=== PATIENT | male | born 1965 | race Caucasian/White ===

== ENCOUNTER 2019-01-08 11:53 | Inpatient (IN) ==
[2019-01-08] MEDS ORDERED: CeFAZolin Syr 2,000MG/20 ML 2,000 MG/20 ML SYRINGE IVPB ONE (12:06)
[2019-01-08] MEDS ORDERED: Albuterol 2.5 MG/3 ML NEBULIZER IH ONE ×2 (12:06→13:39)
[2019-01-08] MEDS ORDERED: Ringers Solution, Lactated 1,000 ML IVC SCH (12:15)
--- NOTE | 2019-01-08 13:02 | Anesthesia Evaluation PreOp ---
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: CVA (2011 - residiual visual deficit only) Other Medical History: Diabetes Type II (oral medications only) Alcohol Use: occasionally, heavy Drug use: none Medications and Allergies Amlodipine Besylate 10 mg PO DAILY 01/05/19 [History] Aspirin [Lo-Dose Aspirin EC] 81 mg PO DAILY 01/05/19 [History] Atorvastatin [Lipitor] 40 mg PO HS 01/05/19 [History] Cilostazol [Pletal] 100 mg PO BID 01/05/19 [History] Clopidogrel [Plavix] 75 mg PO DAILY 01/05/19 [History] GlipiZIDE [Glipizide Xl] 5 mg PO DAILY 01/05/19 [History] Isosorbide MONOnitrate (24 HR) [Imdur] 30 mg PO DAILY 01/05/19 [History] Lisinopril [Zestril] 40 mg PO DAILY 01/05/19 [History] Nitroglycerin [Nitrostat] 0.4 mg SL Q5M PRN 01/05/19 [History] Omeprazole [PriLOSEC] 20 mg PO DAILY 01/05/19 [History] SitaGLIPtin [Januvia] 100 mg PO DAILY 01/05/19 [History] Spironolactone [Aldactone] 25 mg PO DAILY 01/05/19 [History] hydroCHLOROthiazide [Hydrochlorothiazide] 25 mg PO DAILY 01/05/19 [History] Metformin HCl 1,000 mg PO BID 01/08/19 [History] Metoprolol Succinate [Toprol Xl] 100 mg PO DAILY 01/08/19 [History] Allergy/AdvReac Type Severity Reaction Status Date / Time No Known Allergies Allergy Verified 01/05/19 10:01 - Meds/Allergy Pre-op Review Medications Reviewed: Yes Allergies Reviewed: Yes Beta Blockers on Current Med List: Yes (metoprolol) If Beta Blockers taken, Date/Time (Last Dose taken): 01-07-19 metoprolol 20:00 Anesthesia Results - Labs Laboratory Tests 01/03/19 01/03/19 01/03/19 16:43 16:43 16:43 WBC 9.9 Hgb 12.8 L Hct 40.5 Plt Count 205 PT 10.8 INR 1.0 APTT 34.0 Sodium 140 Potassium 3.4 L Chloride 104 Carbon Dioxide 28 BUN 20 Creatinine 0.93 Est GFR ( Amer) > 60 Est GFR (Non-Af Amer) > 60 BUN/Creatinine Ratio 22 Glucose 245 H Est Mean Plasma Glucose Hemoglobin A1c Calculated Osmolality 301 H Calcium 9.4 01/05/19 16:51 WBC Hgb Hct Plt Count PT INR APTT Sodium Potassium Chloride Carbon Dioxide BUN Creatinine Est GFR ( Amer) Est GFR (Non-Af Amer) BUN/Creatinine Ratio Glucose Est Mean Plasma Glucose 235 Hemoglobin A1c 9.8 H Calculated Osmolality Calcium - Imaging EKG: report reviewed, image reviewed (SINUS RHYTHM MODERATE INTRAVENTRICULAR CONDUCTION DELAY) Anesthesia Exam Last Vital Signs Temp 98.3 F 01/08/19 12:13 Pulse 82 01/08/19 12:13 Resp 18 01/08/19 12:13 BP 156/92 01/08/19 12:13 Pulse Ox 97 01/08/19 12:13 Weight: 104 kg - HEENT Pupil (Motor): Pupils equal, EOMI Mallampati: III Teeth: Normal Oral Opening: Greater than 3 - EXT JS DEVELOPER LOC: Oriented - Cardiac Rhythm: Regular Murmur: None - Pulmonary Breath Sounds: bilateral Clear Respiratory Effort: Symmetrical Anesthesia Assess/Plan ASA Score: 3 Level of consciousness: Cooperative Anesthetic Plan: General Monitoring Plan: Standard Monitors, A-Line Recovery Plan: PACU
[2019-01-08] MEDS ORDERED: Heparin 1,000 UNITS/500 mL 500 ML ONE ×3 (13:36→19:55)
[2019-01-08] MEDS ORDERED: *HR* OxyCODONE Immed Rel 5 MG TABLET PO PRN (13:39)
[2019-01-08] MEDS ORDERED: Acetaminophen IV 1,000 MG/100 ML INFUS..BTL IVPB ONE (13:39)
[2019-01-08] MEDS ORDERED: *HR* Midazolam HCl 2 MG/2 ML VIAL ONE ×2 (14:09→16:38)
[2019-01-08] MEDS ORDERED: *HR* FentaNYL (PF) 100 MCG/2 ML VIAL ONE ×3 (14:09→17:35)
--- NOTE | 2019-01-08 14:09 | History & Physical Report ---
Date of Encounter: 01/08/19 Time of Encounter: 14:00 24 Hour HP Update - Instructions Instructions: If the History and Physical is less than 30 days old and was completed prior to A.M. admission and or procedure and has NOT been updated on calendar day of procedure please complete this update prior to performing procedure. - Update Patient reports changes in Medical Condition: No Changes in examination, assessment, or condition: No Changes in Medication: No Preop tests/diagnostics Reviewed: Yes Surgery Remains Indicated: Yes Consent for Planned Operative Procedure(s) Verified: Yes - Pre-Operative Checklist Preoperative Checklist Indicated: Yes Prophylactic Antibiotic Ordered: Yes Home Medications Include Beta Jazzy: Yes Beta Jazzy Taken Today (Day of Surgery): Yes Beta Jazzy Taken Yesterday (Day Prior to Surgery): Yes Is VTE Prophylaxis Indicated?: Yes
[2019-01-08] MEDS ORDERED: *HR* Propofol 200 MG/20 ML VIAL IVP ONE ×2 (14:10→16:40)
[2019-01-08] MEDS ORDERED: Dexamethasone 4 MG/ML VIAL ONE ×2 (14:13→18:24)
[2019-01-08] MEDS ORDERED: *HR* Succinylcholine 200 MG/10 ML VIAL IVP ONE ×2 (14:13→18:18)
[2019-01-08] MEDS ORDERED: Ondansetron 4 MG/2 ML VIAL ONE ×2 (14:13→18:24)
[2019-01-08] MEDS ORDERED: EPHEDrine 50 MG/ML VIAL ONE ×2 (14:13→18:20)
[2019-01-08] MEDS ORDERED: Lidocaine -MPF 2% 2 ML VIAL ONE ×3 (14:13→17:28)
[2019-01-08] MEDS ORDERED: *HR* Phenylephrine 10 MG/ML VIAL ONE ×2 (14:16→16:42)
[2019-01-08] MEDS ORDERED: *HR* Rocuronium Bromide 50 MG/5 ML VIAL ONE (16:38)
[2019-01-08] MEDS ORDERED: *HR* Remifentanil 2 MG VIAL IVP ONE (16:40)
[2019-01-08] MEDS ORDERED: Protamine Sulfate 50 MG/5 ML VIAL IVP ONE (16:48)
[2019-01-08] MEDS ORDERED: Lidocaine 1% 20 ML MDV ONE (16:49)
[2019-01-08] MEDS ORDERED: NiCARdipine 2.5 MG/10 ML Syringe IVPB ONE (16:54)
[2019-01-08] MEDS ORDERED: *HR* Heparin 5,000 UNIT/ML VIAL ONE (18:18)
[2019-01-08] MEDS ORDERED: *HR* PHENYLEPHRINE 1,000 MCG/10 ML SYRINGE IVP ONE (18:18)
--- NOTE | 2019-01-08 19:45 | Anesthesia Procedures ---
Date of Encounter: 01/08/19 Time of Encounter: 17:30 Procedures: Anesthesia - Arterial Line Time out performed: Yes Sedation: Versed (mg): 2 Sedation: Fentanyl (mcg): 150 Supplemental Oxygen via Nasal Cannula (L/min): 3 Local Anesthetic: Lidocaine 1% Size (Gauge): 20 Length (inches): 1 3/4 Technique Used: sterile prep, guide wire technique Post-Procedure: line taped into place, dry sterile dressing placed Patient tolerated procedure: well Complications: none Site: Brachial L
[2019-01-08] MEDS ORDERED: *HR* HYDROmorphone (PF) 1 MG/ML SYRINGE ONE (21:45)
[2019-01-08] MEDS: *HR* HYDROmorphone (PF) 1 MG/ML SYRINGE IVP PRN ×2 (21:47→21:54)
[2019-01-08] MEDS: *HR* Promethazine 25 MG/ML VIAL IVP PRN ×2 (21:49→22:06)
--- NOTE | 2019-01-08 21:53 | Operative Note ---
Date of procedure: 01/08/19 Pre-op diagnosis: left carotid stenosis/TIA Post-op diagnosis: same Procedure: left carotid endarterectomy with 10 Fr. shunt and bovine patch angioplasty left neck lymph node biopsy Complications: 0 Anesthesia: GETA Surgeon: Rene Michelle Was there an regional administrative assistant present: No Estimated blood loss (cc): 300 Specimen: plaque and lymph nodes Condition: stable Disposition: PACU Procedure in Detail: History Mr. Alfonso is a 53-year-old white male with very colicky past medical history. This includes significant coronary artery disease and multiple coronary stents. He also suffered a stroke in 2011. He is now having visual disturbances which led to a duplex scan. The carotid artery duplex scan showed a markedly abnormal left carotid flow pattern. A carotid artery antrum was performed last week which demonstrated a critical stenosis of greater than 90% of the left internal carotid artery. The patient for urgent left carotid endarterectomy. Procedure After informed consent was obtained the patient was taken from the holding room to the operating room. General endotracheal anesthesia was established under arterial line pressure monitoring. The left neck was then sterilely prepped and draped. A timeout protocol was observed. An oblique incision was then made on the left neck. This revealed significant inflammatory changes in the left neck. The contents of the carotid sheath were essentially fused together. There was dramatic bulky lymphadenopathy present as well. A very tedious dissection was unnecessary in order to dissect off the lymph nodes which were overlying the carotid artery bifurcation. 2 lymph nodes were submitted for specimen as they needed to be resected to provide appropriate exposure. Dissection was carried down along the anterior surface of the carotid. Very thick inflammatory peel was surrounding the carotid vessels as well. The hypoglossal nerve was identified and preserved as was the ansa cervicalis nerve. After appropriate control was obtained with Vesseloops 5000 units of heparin was administered intravenously. After 3 minute delay the vessels were clamped with the internal carotid artery clamped first. Using an 11 blade knife and Davis scissors the artery was opened. A shunt was then inserted. Patency of the shunt was confirmed by the use of intraoperative Doppler. Observation of the plaque revealed a critical stenosis of the left internal carotid artery of greater than 95%. The plaque was very heterogeneous semi-soft material. The plaque extended more distally and proximally than depicted by the angiogram as well. The wall of the artery was also markedly thickened and inflamed. The endarterectomy was then begun at the distal common carotid artery. This was dissected circumferentially. The dissection was carried distally so that the s uperior thyroid and external carotid artery orifices were also endarterectomized fully. The arteriotomy was then extended on the internal carotid artery. A James shunt clamp was used. The endpoint on the internal was smooth and no tacking sutures were necessary. The bed of the vessels then inspected for any residual debris. After this was removed a bovine pericardial patch was sewn into position using 2 6-0 Prolene sutures. Leaving a small space open on the suture line the shunt was clamped divided and removed. The internal carotid artery was allowed to backflush and it was reclamped. Then the external and common carotid artery were opened. Finally the internal was reopened. Excellent pulsatile flow was observed both by palpation and by Doppler evaluation. There was no hemodynamic distress with this maneuver. The wound was then irrigated and hemostasis achieved. A superficial cervical block using half percent Marcaine was performed. The wound was then closed in layers using absorbable suture. No drains were placed. A dry sterile dressing was applied. The patient was extubated in the operating room. He was found to be neurologically intact. He was then taken from the operating room to the recovery room in stable condition. The lymph nodes and the plaque were submitted for specimen analysis.
--- NOTE | 2019-01-08 22:46 | Anesthesia Evaluation Post Op ---
Date of Encounter: 01/08/19 Time of Encounter: 22:45 - Vital Signs Vital Signs: Vital Signs/O2 Sat, Most Current Temp Pulse Resp BP Pulse Ox 97.5 F L 80 16 150/87 97 01/08/19 22:32 01/08/19 22:32 01/08/19 22:32 01/08/19 22:32 01/08/19 22:32 - Lungs Lungs: Clear Ascult./Percussion - Airway Airway: Non-obstructed - Cardiovascular Regular Rate - Mental Status Mental Status: Asleep with brisk response to light stimulation - Pain Pain Scale: 7 Pain Scale used: Numeric (1 - 10) - Nausea Vomiting Nausea Vomiting: Not Present - Hydration Hydration: Ice chips, [place] catheter - Discharge PostOp Status: Transfer Patient to floor
[2019-01-08] MEDS ORDERED: *HR* HYDROcodone/Acet 5/325 mg TABLET PO PRN (22:51)
[2019-01-08] MEDS ORDERED: Nitroglycerin 0.4 MG TAB.SUBL SL PRN (22:51)
[2019-01-08] MEDS ORDERED: Naloxone 0.4 MG/ML INJ IVP PRN (22:51)
[2019-01-08] MEDS ORDERED: Ondansetron 4 MG/2 ML VIAL IVP PRN (22:51)
[2019-01-08] MEDS ORDERED: *HR* Labetalol 20 MG/4 ML SYRINGE IVP PRN (22:51)
[2019-01-09] MEDS: Acetaminophen 325 MG TABLET PO PRN ×2 (04:28→11:59)
[2019-01-09 07:38] LABS: Basophils % 0.2 %; Hematocrit 35.3 % (37.5-50.1); Hemoglobin 11.5 g/dL (12.9-16.9); Immature Granulocytes % 0.8 % (0-4); Lymphocytes # 1.3 K/mcL (0.6-4.6); Lymphocytes % 13.8 %; Mean Corpuscular HGB Conc 32.6 g/dL (31.6-35.5); Mean Corpuscular Hemoglobin 30.7 pg (28.0-33.3); Mean Corpuscular Volume 94.4 fL (83.0-100.0); Monocytes # 0.6 K/mcL (0.0-1.3); Neutrophils # 7.6 K/mcL (1.6-8.9); Platelet Count 171 K/mcL (140-400); Red Blood Count 3.74 M/mcL (4.19-5.50); Red Cell Distribution Width 12.7 % (11.5-14.5); Segmented Neutrophils % 79.2 %; White Blood Count 9.6 K/mcL (4.3-11.1)
[2019-01-09 07:49] LABS: BUN/Creatinine Ratio 19 (6-26); Blood Urea Nitrogen 15 mg/dL (6-20); Calcium 8.8 mg/dL (8.6-10.3); Carbon Dioxide 25 mEq/L (23-29); Chloride 106 mEq/L (98-107); Glucose 313 mg/dL (70-105); Osmolality,Calculated 289 (280-300); Potassium 4.4 mEq/L (3.5-5.1); Sodium 133 mEq/L (136-145); eGFR For African Americans > 60 (> 60); eGFR For Non-African Americans > 60 (> 60)
[2019-01-09] MEDS ORDERED: Nicotine 14 MG PATCH.TD24 TD SCH (08:00)
[2019-01-09] MEDS ORDERED: amLODIPine 5 MG TABLET PO SCH (09:00)
[2019-01-09] MEDS ORDERED: Spironolactone 25 MG TABLET PO SCH (09:00)
[2019-01-09] MEDS ORDERED: Lisinopril 20 MG TABLET PO SCH (09:00)
[2019-01-09] MEDS ORDERED: *HR* SitaGLIPtin 100 MG TABLET PO SCH (09:00)
[2019-01-09] MEDS ORDERED: Metoprolol XL (24 HR) Succ 50 MG TAB.ER.24H PO SCH (09:00)
[2019-01-09] MEDS ORDERED: *HR* GlipiZIDE XL (24 HR) 2.5 MG TABLET PO SCH (09:00)
[2019-01-09] MEDS ORDERED: hydroCHLOROthiazide 25 MG TABLET PO SCH (09:00)
[2019-01-09] MEDS ORDERED: Isosorbide MONOnitrate (24 HR) 30 MG TAB.ER.24H PO SCH (09:00)
[2019-01-09] MEDS ORDERED: *HR* Metformin 500 MG TABLET PO SCH (09:00)
[2019-01-09] MEDS ORDERED: Aspirin Enteric Coated 81 MG Tablet PO SCH (09:00)
[2019-01-09 12:02] VITALS: BP 147/85
--- NOTE | 2019-01-09 12:33 | Discharge Summary ---
Orders not resulted at time of discharge: Pending orders 01/08/19 20:01 Surgical Pathology [PTH] Routine Date of Encounter: 01/09/19 Time of Encounter: 12:31 - Discharge Diagnosis (1) Carotid arterial disease Priority: Primary Status: Acute Comments: Patient has high-grade left internal carotid artery stenosis. Patient also had visual symptoms. He has a past history of stroke. Endocrine was performed which confirmed a high-grade lesion. Qualifiers: Carotid artery disease type: stenosis Laterality: left Qualified Code(s): I65.22 - Occlusion and stenosis of left carotid artery (2) Coronary artery disease Priority: Secondary Status: Chronic Comments: History of non-STEMI. History of previous coronary angioplasties. Qualifiers: Coronary Disease-Associated Artery/Lesion type: [place] artery [place] vs. 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 Alfonso is a 53 year old male With symptomatic eye disease. He has known carotid artery disease by duplex scan. Telemetry a high-grade left carotid lesion. Patient has a previous stroke in 2011. He has multiple risk factors for vascular disease. Patient was admitted and underwent a left carotid endarterectomy. He had marked inflammatory changes. 2 large bulky lymph nodes were removed at the time of surgery and submitted for specimen. Postoperatively the patient did well. He was neurologically intact. He was hemodynamically stable. He was felt fit for discharge on the afternoon of postoperative day #1. Instructions were given in regards to his diet and exercise and medication and wound care prior to discharge. Time spent discussing smoking cessation with patient: 3 to 10 minutes - Time Spent with Patient Total time spent providing and/or coordinating discharge services: - Discharge Medications Prescriptions: New Nicotine Patch [Nicoderm] 14 mg TD DAILY #30 patch.[id number] HYDROcodone/Acet 5/325 mg [[place] 5-325 mg] 1 tab PO Q6H PRN 7 Days #7 tablet PRN Reason: Moderate Pain Continued Spironolactone [Aldactone] 25 mg PO DAILY SitaGLIPtin [Januvia] 100 mg PO DAILY Omeprazole [PriLOSEC] 20 mg PO DAILY Nitroglycerin [Nitrostat] 0.4 mg SL Q5M PRN PRN Reason: Chest Pain Lisinopril [Zestril] 40 mg PO DAILY Isosorbide MONOnitrate (24 HR) [Imdur] 30 mg PO DAILY hydroCHLOROthiazide [Hydrochlorothiazide] 25 mg PO DAILY GlipiZIDE [Glipizide Xl] 5 mg PO DAILY Clopidogrel [Plavix] 75 mg PO DAILY Cilostazol [Pletal] 100 mg PO BID Atorvastatin [Lipitor] 40 mg PO HS Aspirin [Lo-Dose Aspirin EC] 81 mg PO DAILY Amlodipine Besylate 10 mg PO DAILY Metoprolol Succinate [Toprol Xl] 100 mg PO DAILY Metformin HCl 1,000 mg PO BID Home Medications: Amlodipine Besylate 10 mg PO DAILY 01/05/19 [History] Aspirin [Lo-Dose Aspirin EC] 81 mg PO DAILY 01/05/19 [History] Atorvastatin [Lipitor] 40 mg PO HS 01/05/19 [History] Cilostazol [Pletal] 100 mg PO BID 01/05/19 [History] Clopidogrel [Plavix] 75 mg PO DAILY 01/05/19 [History] GlipiZIDE [Glipizide Xl] 5 mg PO DAILY 01/05/19 [History] Isosorbide MONOnitrate (24 HR) [Imdur] 30 mg PO DAILY 01/05/19 [History] Lisinopril [Zestril] 40 mg PO DAILY 01/05/19 [History] Nitroglycerin [Nitrostat] 0.4 mg SL Q5M PRN 01/05/19 [History] Omeprazole [PriLOSEC] 20 mg PO DAILY 01/05/19 [History] SitaGLIPtin [Januvia] 100 mg PO DAILY 01/05/19 [History] Spironolactone [Aldactone] 25 mg PO DAILY 01/05/19 [History] hydroCHLOROthiazide [Hydrochlorothiazide] 25 mg PO DAILY 01/05/19 [History] Metformin HCl 1,000 mg PO BID 01/08/19 [History] Metoprolol Succinate [Toprol Xl] 100 mg PO DAILY 01/08/19 [History] HYDROcodone/Acet 5/325 mg [[place] 5-325 mg] 1 tab PO Q6H PRN 7 Days #7 tablet 01/09/19 [Rx] Nicotine Patch [Nicoderm] 14 mg TD DAILY #30 patch.[id number] 01/09/19 [Rx] Allergies/Adverse Reactions: Allergy/AdvReac Type Severity Reaction Status Date / Time No Known Allergies Allergy Verified 01/05/19 10:01 Date of admission: 01/08/19 22:42 Primary care physician: PCP DC Consults: None Procedure(s) Performed: Left carotid endarterectomy with patch angioplasty Discharging clinician: Rene Michelle Anticipated date of discharge: 01/09/19 Exam Vital Signs, Last 4 Hours Temp Pulse Resp BP Pulse Ox 01/09/19 11:56 97.7 F 82 16 147/85 94 General: Present: Conversant, No Apparent Distress, Well developed, Well nourished HEENT: Present: Atraumatic, Trachea midline Cardiac: Present: Reg Rate and Rhythm Lungs: Present: Normal Breath Sounds Neuro: Present: Alert and responsive, No focal deficits noted, Cranial nerves grossly intact, Motor nerves grossly intact, Sensory nerves grossly intact Vascular: Present: Surgical incisions (Dry dressing over left neck incision) Skin: Present: No rashes noted on visualized skin - Patient Status Disposition: Home, Self-Care Condition: Good Functional capacity at discharge: independent ambulation Overall status at discharge: patient is progressing back to baseline - Discharge Instructions Follow Up With: DC,PCP [Primary Care Provider] - 01/19/19 10:30 am (teal team) Rene Michelle MD [Partnered Physician] - 01/29/19 11:00 am Additional Instructions: Removed left neck dressing tomorrow. Continued use ice pack on left neck for the next 48 hours at home. Resume usual home medications. No lifting greater than 10 pounds. No driving. No manual labor. Patient may walk inside and outside. Patient may use stairs as tolerated. Keep left neck incision dry for a total of 5 days following surgery. - Diet and Activity Activity: increase activity as tolerated Diet: diabetic diet
== END 2019-01-09 16:02 | disposition home or self-care (01) | DRG 39 ==
LOC: SAMDAY 11:53 → 2NNU 22:42
PROVIDERS: ADMIT Surgery Vascular Surgery; ATTEND Surgery Vascular Surgery

== ENCOUNTER 2019-01-18 08:14 | Inpatient (IN) ==
[2019-01-18] MEDS ORDERED: Isovue-370 500 ML BOTTLE IVP ONE (08:36)
[2019-01-18 08:43] LABS: Basophils # 0.1 K/mcL (0.0-0.2); Basophils % 0.5 %; Eosinophils # 0.1 K/mcL (0.0-0.6); Eosinophils % 0.5 %; Hematocrit 39.2 % (37.5-50.1); Hemoglobin 12.5 g/dL (12.9-16.9); Immature Granulocytes % 0.6 % (0-4); Lymphocytes # 2.4 K/mcL (0.6-4.6); Lymphocytes % 12.6 %; Mean Corpuscular HGB Conc 31.9 g/dL (31.6-35.5); Mean Corpuscular Hemoglobin 29.8 pg (28.0-33.3); Mean Corpuscular Volume 93.6 fL (83.0-100.0); Monocytes # 1.7 K/mcL (0.0-1.3); Neutrophils # 14.6 K/mcL (1.6-8.9); Platelet Count 297 K/mcL (140-400); Red Blood Count 4.19 M/mcL (4.19-5.50); Red Cell Distribution Width 12.6 % (11.5-14.5); Segmented Neutrophils % 76.8 %
[2019-01-18 08:55] LABS: INR 1.1; Prothrombin Time 12.2 Seconds (9.4-12.1)
[2019-01-18 09:02] LABS: BUN/Creatinine Ratio 13 (6-26); Blood Urea Nitrogen 12 mg/dL (6-20); Calcium 9.3 mg/dL (8.6-10.3); Carbon Dioxide 27 mEq/L (23-29); Chloride 98 mEq/L (98-107); Glucose 344 mg/dL (70-105); Osmolality,Calculated 289 (280-300); Potassium 3.7 mEq/L (3.5-5.1); Sodium 133 mEq/L (136-145); eGFR For African Americans > 60 (> 60); eGFR For Non-African Americans > 60 (> 60)
[2019-01-18] MEDS ORDERED: *HR* HYDROmorphone (PF) 1 MG/ML SYRINGE IVP ONE ×2 (10:28→16:37)
[2019-01-18] MEDS ORDERED: Ondansetron 4 MG/2 ML VIAL IVP PRN (11:27)
[2019-01-18] MEDS ORDERED: Naloxone 0.4 MG/ML INJ IVP PRN ×2 (11:27→21:56)
[2019-01-18] MEDS ORDERED: Ringers Solution, Lactated 1,000 ML IVC SCH (11:30)
[2019-01-18] MEDS ORDERED: *HR* FentaNYL (PF) 100 MCG/2 ML VIAL IVP ONE (13:49)
[2019-01-18] MEDS ORDERED: Heparin 1,000 UNITS/500 mL 500 ML ONE ×2 (18:04→18:20)
[2019-01-18] MEDS ORDERED: ceFAZolin 2,000 MG in Water for inj. (sterile) 20 ML IVP ONE (18:14)
[2019-01-18] MEDS ORDERED: Lidocaine TOPICAL Soln 50 ML BOTTLE ONE (18:25)
[2019-01-18] MEDS ORDERED: Acetaminophen IV 1,000 MG/100 ML INFUS..BTL ONE (19:51)
[2019-01-18] MEDS ORDERED: Vancomycin 1,000 MG VIAL ONE (20:02)
[2019-01-18] MEDS ORDERED: Lidocaine -MPF 2% 2 ML VIAL ONE (20:57)
[2019-01-18] MEDS ORDERED: *HR* Midazolam HCl 2 MG/2 ML VIAL ONE (20:57)
[2019-01-18] MEDS ORDERED: Ondansetron 4 MG/2 ML VIAL ONE (20:57)
[2019-01-18] MEDS ORDERED: Dexamethasone 4 MG/ML VIAL ONE (20:57)
[2019-01-18] MEDS ORDERED: EPHEDrine 50 MG/ML VIAL ONE (20:57)
[2019-01-18] MEDS ORDERED: *HR* PHENYLEPHRINE 1,000 MCG/10 ML SYRINGE IVP ONE ×3 (20:57)
[2019-01-18] MEDS ORDERED: *HR* Succinylcholine 200 MG/10 ML VIAL IVP ONE (20:57)
[2019-01-18] MEDS ORDERED: *HR* Phenylephrine 10 MG/ML VIAL ONE (20:57)
[2019-01-18] MEDS ORDERED: *HR* FentaNYL (PF) 100 MCG/2 ML VIAL ONE ×2 (20:57)
[2019-01-18] MEDS ORDERED: *HR* HYDROMORPHONE 2 MG/ML VIAL ONE (20:57)
[2019-01-18] MEDS ORDERED: *HR* Propofol 200 MG/20 ML VIAL IVP ONE (20:57)
[2019-01-18] MEDS ORDERED: Ringers Solution, Lactated 1,000 ML ONE (21:41)
[2019-01-18] MEDS ORDERED: Ampicillin/Sulbactam 3,000 MG in 0.9 % Sodium Chloride Mini Bag 100 ML IVPB SCH (22:00)
[2019-01-19] MEDS ORDERED: Nitroglycerin 0.4 MG TAB.SUBL SL PRN (00:03)
[2019-01-19] MEDS: Nicotine 14 MG PATCH.TD24 TD SCH ×2 (00:04→21:48)
[2019-01-19] MEDS ORDERED: *HR* Labetalol 20 MG/4 ML SYRINGE IVP PRN (00:05)
[2019-01-19] MEDS: *HR* Metformin 500 MG TABLET PO SCH ×3 (00:20→21:49)
[2019-01-19] MEDS ORDERED: Vancomycin 1,000 MG in D5% in Water 250 ML IVPB ONE (01:00)
[2019-01-19 01:28] LABS: Basophils # 0.1 K/mcL (0.0-0.2); Basophils % 0.3 %; Immature Granulocytes % 0.7 % (0-4); Lymphocytes # 0.8 K/mcL (0.6-4.6); Lymphocytes % 4.7 %; Mean Corpuscular HGB Conc 31.5 g/dL (31.6-35.5); Mean Corpuscular Hemoglobin 30.1 pg (28.0-33.3); Mean Corpuscular Volume 95.4 fL (83.0-100.0); Mean Platelet Volume 12.5 fL (9.4-12.4); Monocytes # 0.3 K/mcL (0.0-1.3); Monocytes % 1.5 %; Neutrophils # 16.4 K/mcL (1.6-8.9); Platelet Count 253 K/mcL (140-400); Red Blood Count 3.46 M/mcL (4.19-5.50); Red Cell Distribution Width 12.5 % (11.5-14.5); Segmented Neutrophils % 92.8 %; White Blood Count 17.6 K/mcL (4.3-11.1)
[2019-01-19 01:30] LABS: Hemoglobin 10.4 g/dL (12.9-16.9)
[2019-01-19] MEDS: *HR* HYDROcodone/Acet 5/325 mg TABLET PO PRN (04:40)
[2019-01-19] MEDS: Ampicillin/Sulbactam 3,000 MG in 0.9 % Sodium Chloride Mini Bag 100 ML IVPB SCH ×4 (05:17→23:51)
[2019-01-19] MEDS ORDERED: Dextrose Gel 15 GM/37.5 ML TUBE PO PRN ×2 (08:30)
[2019-01-19] MEDS ORDERED: D5% in Water 1,000 ML IVC PRN (08:30)
[2019-01-19] MEDS ORDERED: *HR* Dextrose 50 % in Water (Syg) 50 ML SYRINGE IVP PRN (08:30)
[2019-01-19] MEDS: Insulin LISPRO 300 UNITS/3 ML VIAL SQ SCH ×4 (09:12→21:49)
[2019-01-19] MEDS: Lisinopril 20 MG TABLET PO SCH (09:55)
[2019-01-19] MEDS: *HR* SitaGLIPtin 100 MG TABLET PO SCH (09:55)
[2019-01-19] MEDS: *HR* GlipiZIDE XL (24 HR) 2.5 MG TABLET PO SCH (09:55)
[2019-01-19] MEDS: Spironolactone 25 MG TABLET PO SCH (09:55)
[2019-01-19] MEDS: Metoprolol XL (24 HR) Succ 50 MG TAB.ER.24H PO SCH (09:56)
[2019-01-19] MEDS: amLODIPine 5 MG TABLET PO SCH (09:56)
[2019-01-19] MEDS: Aspirin Enteric Coated 81 MG Tablet PO SCH (09:56)
[2019-01-19] MEDS: Isosorbide MONOnitrate (24 HR) 30 MG TAB.ER.24H PO SCH (09:56)
[2019-01-19] MEDS: hydroCHLOROthiazide 25 MG TABLET PO SCH (09:57)
[2019-01-19] MEDS ORDERED: Isovue-370 500 ML BOTTLE IVP ONE (14:47)
[2019-01-19] MEDS: Melatonin 3 MG TABLET PO PRN (21:49)
[2019-01-19 21:57] LABS: BUN/Creatinine Ratio 26 (6-26); Blood Urea Nitrogen 23 mg/dL (6-20); Calcium 9.1 mg/dL (8.6-10.3); Carbon Dioxide 31 mEq/L (23-29); Chloride 98 mEq/L (98-107); Glucose 217 mg/dL (70-105); Osmolality,Calculated 292 (280-300); Potassium 3.6 mEq/L (3.5-5.1); Sodium 136 mEq/L (136-145); eGFR For African Americans > 60 (> 60); eGFR For Non-African Americans > 60 (> 60)
[2019-01-19] MEDS ORDERED: Nicotine 14 MG PATCH.TD24 TD SCH (22:30)
[2019-01-20] MEDS: Ampicillin/Sulbactam 3,000 MG in 0.9 % Sodium Chloride Mini Bag 100 ML IVPB SCH ×3 (05:08→16:41)
[2019-01-20] MEDS: *HR* HYDROcodone/Acet 5/325 mg TABLET PO PRN (05:49)
[2019-01-20] MEDS: *HR* SitaGLIPtin 100 MG TABLET PO SCH (08:15)
[2019-01-20] MEDS: *HR* GlipiZIDE XL (24 HR) 2.5 MG TABLET PO SCH (08:15)
[2019-01-20] MEDS: amLODIPine 5 MG TABLET PO SCH (08:15)
[2019-01-20] MEDS: hydroCHLOROthiazide 25 MG TABLET PO SCH (08:15)
[2019-01-20] MEDS: Isosorbide MONOnitrate (24 HR) 30 MG TAB.ER.24H PO SCH (08:15)
[2019-01-20] MEDS: Spironolactone 25 MG TABLET PO SCH (08:15)
[2019-01-20] MEDS: *HR* Metformin 500 MG TABLET PO SCH ×2 (08:15→20:25)
[2019-01-20] MEDS: Aspirin Enteric Coated 81 MG Tablet PO SCH (08:15)
[2019-01-20] MEDS: Lisinopril 20 MG TABLET PO SCH (08:15)
[2019-01-20] MEDS: Metoprolol XL (24 HR) Succ 50 MG TAB.ER.24H PO SCH (08:15)
[2019-01-20] MEDS: Insulin LISPRO 300 UNITS/3 ML VIAL SQ SCH ×4 (08:17→20:25)
[2019-01-20] MEDS: Nicotine 14 MG PATCH.TD24 TD SCH (20:26)
[2019-01-21] MEDS: Ampicillin/Sulbactam 3,000 MG in 0.9 % Sodium Chloride Mini Bag 100 ML IVPB SCH ×5 (01:06→23:28)
[2019-01-21] MEDS: *HR* HYDROcodone/Acet 5/325 mg TABLET PO PRN ×3 (01:18→20:15)
[2019-01-21] MEDS: Spironolactone 25 MG TABLET PO SCH (08:03)
[2019-01-21] MEDS: Lisinopril 20 MG TABLET PO SCH (08:03)
[2019-01-21] MEDS: *HR* Metformin 500 MG TABLET PO SCH ×2 (08:03→20:13)
[2019-01-21] MEDS: amLODIPine 5 MG TABLET PO SCH (08:03)
[2019-01-21] MEDS: Isosorbide MONOnitrate (24 HR) 30 MG TAB.ER.24H PO SCH (08:03)
[2019-01-21] MEDS: Metoprolol XL (24 HR) Succ 50 MG TAB.ER.24H PO SCH (08:03)
[2019-01-21] MEDS: Aspirin Enteric Coated 81 MG Tablet PO SCH (08:03)
[2019-01-21] MEDS: *HR* GlipiZIDE XL (24 HR) 2.5 MG TABLET PO SCH (08:03)
[2019-01-21] MEDS: *HR* SitaGLIPtin 100 MG TABLET PO SCH (08:03)
[2019-01-21] MEDS: hydroCHLOROthiazide 25 MG TABLET PO SCH (08:03)
[2019-01-21] MEDS: Insulin LISPRO 300 UNITS/3 ML VIAL SQ SCH ×4 (08:04→21:45)
[2019-01-21] MEDS: Nicotine 14 MG PATCH.TD24 TD SCH (20:13)
[2019-01-22] MEDS: Ampicillin/Sulbactam 3,000 MG in 0.9 % Sodium Chloride Mini Bag 100 ML IVPB SCH ×3 (04:59→18:11)
[2019-01-22] MEDS: *HR* SitaGLIPtin 100 MG TABLET PO SCH (08:17)
[2019-01-22] MEDS: Isosorbide MONOnitrate (24 HR) 30 MG TAB.ER.24H PO SCH (08:17)
[2019-01-22] MEDS: *HR* Metformin 500 MG TABLET PO SCH ×2 (08:17→20:58)
[2019-01-22] MEDS: hydroCHLOROthiazide 25 MG TABLET PO SCH (08:17)
[2019-01-22] MEDS: Lisinopril 20 MG TABLET PO SCH (08:17)
[2019-01-22] MEDS: Spironolactone 25 MG TABLET PO SCH (08:17)
[2019-01-22] MEDS: Metoprolol XL (24 HR) Succ 50 MG TAB.ER.24H PO SCH (08:18)
[2019-01-22] MEDS: Insulin LISPRO 300 UNITS/3 ML VIAL SQ SCH ×4 (08:18→21:01)
[2019-01-22] MEDS: Aspirin Enteric Coated 81 MG Tablet PO SCH (08:18)
[2019-01-22] MEDS: *HR* GlipiZIDE XL (24 HR) 2.5 MG TABLET PO SCH (08:18)
[2019-01-22] MEDS: amLODIPine 5 MG TABLET PO SCH (08:18)
[2019-01-22] MEDS: Nicotine 14 MG PATCH.TD24 TD SCH (20:57)
[2019-01-22] MEDS: Melatonin 3 MG TABLET PO PRN (20:58)
[2019-01-23] MEDS: Ampicillin/Sulbactam 3,000 MG in 0.9 % Sodium Chloride Mini Bag 100 ML IVPB SCH ×3 (00:28→11:51)
[2019-01-23] MEDS: *HR* HYDROcodone/Acet 5/325 mg TABLET PO PRN (01:33)
[2019-01-23 06:26] LABS: BUN/Creatinine Ratio 16 (6-26); Basophils # 0.1 K/mcL (0.0-0.2); Basophils % 0.6 %; Blood Urea Nitrogen 15 mg/dL (6-20); Calcium 9.2 mg/dL (8.6-10.3); Carbon Dioxide 29 mEq/L (23-29); Chloride 100 mEq/L (98-107); Eosinophils # 0.2 K/mcL (0.0-0.6); Eosinophils % 1.2 %; Glucose 189 mg/dL (70-105); Hematocrit 35.5 % (37.5-50.1); Hemoglobin 11.1 g/dL (12.9-16.9); Immature Granulocytes % 0.4 % (0-4); Lymphocytes # 2.4 K/mcL (0.6-4.6); Lymphocytes % 19.1 %; Mean Corpuscular HGB Conc 31.3 g/dL (31.6-35.5); Mean Corpuscular Hemoglobin 29.4 pg (28.0-33.3); Mean Corpuscular Volume 93.9 fL (83.0-100.0); Mean Platelet Volume 12.2 fL (9.4-12.4); Monocytes # 1.1 K/mcL (0.0-1.3); Monocytes % 8.6 %; Neutrophils # 8.8 K/mcL (1.6-8.9); Osmolality,Calculated 292 (280-300); Platelet Count 321 K/mcL (140-400); Potassium 3.7 mEq/L (3.5-5.1); Red Blood Count 3.78 M/mcL (4.19-5.50); Red Cell Distribution Width 12.4 % (11.5-14.5); Segmented Neutrophils % 70.1 %; Sodium 138 mEq/L (136-145); White Blood Count 12.5 K/mcL (4.3-11.1); eGFR For African Americans > 60 (> 60); eGFR For Non-African Americans > 60 (> 60)
[2019-01-23] MEDS: *HR* GlipiZIDE XL (24 HR) 2.5 MG TABLET PO SCH (08:40)
[2019-01-23] MEDS: Isosorbide MONOnitrate (24 HR) 30 MG TAB.ER.24H PO SCH (08:40)
[2019-01-23] MEDS: *HR* Metformin 500 MG TABLET PO SCH (08:40)
[2019-01-23] MEDS: amLODIPine 5 MG TABLET PO SCH (08:40)
[2019-01-23] MEDS: Metoprolol XL (24 HR) Succ 50 MG TAB.ER.24H PO SCH (08:40)
[2019-01-23] MEDS: *HR* SitaGLIPtin 100 MG TABLET PO SCH (08:40)
[2019-01-23] MEDS: hydroCHLOROthiazide 25 MG TABLET PO SCH (08:40)
[2019-01-23] MEDS: Aspirin Enteric Coated 81 MG Tablet PO SCH (08:40)
[2019-01-23] MEDS: Lisinopril 20 MG TABLET PO SCH (08:40)
[2019-01-23] MEDS: Spironolactone 25 MG TABLET PO SCH (08:41)
[2019-01-23] MEDS: Insulin LISPRO 300 UNITS/3 ML VIAL SQ SCH (08:41)
[2019-01-23 12:06] VITALS: BP 111/76
== END 2019-01-23 13:06 | disposition home health service (06) | DRG 857 ==
LOC: EMEROOARM 08:14 → 2NNU 08:14 → SUATTDRO 15:59 → 2NNU 17:14
PROVIDERS: ADMIT Internal Medicine; ATTEND Surgery Vascular Surgery

== ENCOUNTER 2019-05-28 11:15 | Observation (INO) ==
[2019-05-28] MEDS ORDERED: Nitroglycerin 0.4 MG TAB.SUBL SL PRN (11:33)
[2019-05-28] MEDS ORDERED: *HR* LORazepam 2 MG/ML VIAL IVP ONE (11:33)
[2019-05-28 11:46] LABS: Basophils % 0.5 %; Eosinophils # 0.1 K/mcL (0.0-0.6); Eosinophils % 0.8 %; Hematocrit 43.1 % (37.5-50.1); Hemoglobin 14.2 g/dL (12.9-16.9); Immature Granulocytes % 0.2 % (0-4); Lymphocytes # 2.3 K/mcL (0.6-4.6); Lymphocytes % 26.3 %; Mean Corpuscular HGB Conc 32.9 g/dL (31.6-35.5); Mean Corpuscular Volume 90.9 fL (83.0-100.0); Mean Platelet Volume 12.6 fL (9.4-12.4); Monocytes # 0.7 K/mcL (0.0-1.3); Monocytes % 8.1 %; Neutrophils # 5.5 K/mcL (1.6-8.9); Platelet Count 209 K/mcL (140-400); Red Blood Count 4.74 M/mcL (4.19-5.50); Red Cell Distribution Width 12.7 % (11.5-14.5); Segmented Neutrophils % 64.1 %; White Blood Count 8.6 K/mcL (4.3-11.1)
[2019-05-28 12:05] LABS: BUN/Creatinine Ratio 15 (6-26); Blood Urea Nitrogen 15 mg/dL (6-20); Calcium 9.3 mg/dL (8.6-10.3); Carbon Dioxide 26 mEq/L (23-29); Chloride 100 mEq/L (98-107); Glucose 347 mg/dL (70-105); Osmolality,Calculated 295 (280-300); Potassium 3.9 mEq/L (3.5-5.1); Sodium 135 mEq/L (136-145); Troponin I < 0.03 ng/mL (< 0.04); eGFR For African Americans > 60 (> 60); eGFR For Non-African Americans > 60 (> 60)
[2019-05-28] MEDS ORDERED: Insulin Regular, Human 100 UNIT/ML SQ ONE (12:40)
[2019-05-28] MEDS ORDERED: 0.9 % Sodium Chloride 1,000 ML IVC ONE (12:47)
[2019-05-28] MEDS ORDERED: Aspirin 325 MG TABLET PO ONE (12:57)
[2019-05-28] MEDS ORDERED: GI Cocktail 40 ML EACH PO ONE (14:27)
[2019-05-28] MEDS: Lisinopril 20 MG TABLET PO SCH (14:30)
[2019-05-28] MEDS ORDERED: Nicotine 21 MG PATCH.TD24 TD SCH (14:50)
[2019-05-28] MEDS ORDERED: Dextrose Gel 15 GM/37.5 ML TUBE PO PRN ×2 (15:45)
[2019-05-28] MEDS ORDERED: *HR* Dextrose 50 % in Water (Syg) 50 ML SYRINGE IVP PRN (15:45)
[2019-05-28] MEDS ORDERED: D5% in Water 1,000 ML IVC PRN (15:45)
[2019-05-28] MEDS ORDERED: Acetaminophen 325 MG TABLET PO PRN (16:01)
[2019-05-28] MEDS: Insulin LISPRO 300 UNITS/3 ML VIAL SQ SCH (16:26)
[2019-05-28 16:44] LABS: Estimated Average Glucose 266 mg/dl
[2019-05-28] MEDS ORDERED: hydrALAZINE 25 MG TABLET PO SCH ×2 (18:00)
[2019-05-28] MEDS ORDERED: hydrALAZINE 25 MG TABLET PO PRN (18:37)
[2019-05-28] MEDS ORDERED: Perflutren Lipid Microsphere 1.3 ML in 0.9 % Sodium Chloride 8.7 ML IVP ONE (20:26)
[2019-05-28] MEDS ORDERED: Insulin LISPRO 300 UNITS/3 ML VIAL SQ SCH (21:00)
[2019-05-29] MEDS ORDERED: Regadenoson 0.4 MG/5 ML SYRINGE IVP ONE (06:32)
[2019-05-29] MEDS ORDERED: Nicotine 21 MG PATCH.TD24 TD SCH (09:00)
[2019-05-29] MEDS ORDERED: Metoprolol XL (24 HR) Succ 50 MG TAB.ER.24H PO SCH (09:00)
[2019-05-29] MEDS ORDERED: hydroCHLOROthiazide 25 MG TABLET PO SCH (09:00)
[2019-05-29] MEDS ORDERED: Aspirin Enteric Coated 81 MG Tablet PO SCH (09:00)
[2019-05-29] MEDS ORDERED: amLODIPine 5 MG TABLET PO SCH (09:00)
[2019-05-29] MEDS ORDERED: Spironolactone 25 MG TABLET PO SCH (09:00)
[2019-05-29] MEDS: Lisinopril 20 MG TABLET PO SCH (09:48)
[2019-05-29] MEDS: Insulin LISPRO 300 UNITS/3 ML VIAL SQ SCH (09:48)
[2019-05-29 11:32] VITALS: BP 157/96
== END 2019-05-29 12:59 | disposition home or self-care (01) ==
LOC: EMEROOARM 11:15 → 3BNU 11:15 → SUATTDRO 13:18 → 3BNU 14:13
PROVIDERS: ADMIT Internal Medicine; ATTEND Student in an Organized Health Care Education/Training Program

== ENCOUNTER 2020-03-26 15:20 | Inpatient (IN) ==
[2020-03-26] MEDS ORDERED: Isovue-370 500 ML BOTTLE IVP ONE ×2 (15:42→19:37)
[2020-03-26 15:55] LABS: Basophils # 0.1 K/mcL (0.0-0.2); Basophils % 0.5 %; Eosinophils # 0.2 K/mcL (0.0-0.6); Eosinophils % 1.3 %; Hemoglobin 12.6 g/dL (12.9-16.9); Immature Granulocytes % 0.4 % (0-4); Lymphocytes # 3.1 K/mcL (0.6-4.6); Lymphocytes % 22.7 %; Mean Corpuscular HGB Conc 32.3 g/dL (31.6-35.5); Mean Corpuscular Volume 92.9 fL (83.0-100.0); Mean Platelet Volume 12.3 fL (9.4-12.4); Monocytes % 7.4 %; Neutrophils # 9.1 K/mcL (1.6-8.9); Platelet Count 232 K/mcL (140-400); Red Cell Distribution Width 12.1 % (11.5-14.5); Segmented Neutrophils % 67.7 %; White Blood Count 13.5 K/mcL (4.3-11.1)
[2020-03-26 15:59] LABS: INR 1.1; Prothrombin Time 12.4 Seconds (9.4-12.1)
[2020-03-26 16:01] LABS: Activated Partial Thrombo Time 32.3 Seconds (26.0-36.0)
[2020-03-26 16:14] LABS: Alanine Aminotransferase 15 Units/L (7-52); Albumin 3.9 g/dL (3.5-5.7); Albumin/Globulin Ratio 1.3 (1.1-2.2); Alkaline Phosphatase 70 Units/L (34-104); Aspartate Amino Transferase 10 Units/L (13-39); BUN/Creatinine Ratio 20 (6-26); Bilirubin,Total 0.4 mg/dL (0.3-1.0); Blood Urea Nitrogen 26 mg/dL (6-20); Carbon Dioxide 24 mEq/L (23-29); Chloride 101 mEq/L (98-107); Globulin 3.1 g/dL (2.4-3.5); Glucose 346 mg/dL (70-105); Osmolality,Calculated 291 (280-300); Sodium 131 mEq/L (136-145); eGFR For African Americans > 60 (> 60); eGFR For Non-African Americans 57 (> 60)
[2020-03-26] MEDS ORDERED: 0.9 % Sodium Chloride 1,000 ML IVC ONE (20:07)
[2020-03-26 20:53] LABS: Adenovirus Not Detected (Not Detect); Bordetella Pertussis Not Detected (Not Detect); Chlamydophila pneumoniae Not Detected (Not Detect); Coronavirus 229E Not Detected (Not Detect); Coronavirus HKU1 Not Detected (Not Detect); Coronavirus NL63 Not Detected (Not Detect); Coronavirus OC43 Not Detected (Not Detect); Human Metapneumovirus Not Detected (Not Detect); Human Rhinovirus/Enterovirus Not Detected (Not Detect); Influenza A Subtype 2009 H1 Not Detected (Not Detect); Influenza B Not Detected (Not Detect); Mycoplasma pneumoniae Not Detected (Not Detect); Parainfluenza Virus 1 Not Detected (Not Detect); Parainfluenza Virus 2 Not Detected (Not Detect); Parainfluenza Virus 3 Not Detected (Not Detect); Parainfluenza Virus 4 Not Detected (Not Detect); Respiratory Syncytial Virus Not Detected (Not Detect); SARS-CoV-2 Not Detected (Not Detect)
[2020-03-26] MEDS ORDERED: Ondansetron 4 MG/2 ML VIAL IVP PRN (22:01)
[2020-03-26] MEDS ORDERED: Acetaminophen 325 MG TABLET PO PRN (22:01)
[2020-03-26] MEDS ORDERED: Naloxone 0.4 MG/ML INJ IVP PRN (22:01)
[2020-03-26] MEDS ORDERED: D5% in Water 1,000 ML IVC PRN (22:07)
[2020-03-26] MEDS ORDERED: *HR* Dextrose 50 % in Water (Vial) 50 ML VIAL IVP PRN (22:07)
[2020-03-26] MEDS ORDERED: Dextrose Gel 15 GM/37.5 ML TUBE PO PRN ×2 (22:07)
[2020-03-26] MEDS ORDERED: *HR* Heparin 5,000 UNIT/ML VIAL SQ SCH (22:15)
[2020-03-26] MEDS: 0.9 % Sodium Chloride 1,000 ML IVC SCH (23:16)
[2020-03-26] MEDS: Insulin LISPRO 300 UNITS/3 ML VIAL SQ SCH (23:26)
[2020-03-27] MEDS ORDERED: *HR* Heparin 5,000 UNIT/ML VIAL IVP ONE (01:26)
[2020-03-27] MEDS ORDERED: *HR* Heparin 5,000 UNIT/ML VIAL IVP PRN ×2 (01:26)
[2020-03-27] MEDS ORDERED: Heparin 25,000UNIT/250ML 1/2NS 25,000 UNIT/250 ML IV.SOLN IVC SCH (01:30)
[2020-03-27 03:03] LABS: Hemoglobin 11.6 g/dL (12.9-16.9); Mean Corpuscular HGB Conc 31.4 g/dL (31.6-35.5); Mean Corpuscular Hemoglobin 30.1 pg (28.0-33.3); Mean Corpuscular Volume 95.9 fL (83.0-100.0); Mean Platelet Volume 12.3 fL (9.4-12.4); Platelet Count 187 K/mcL (140-400); Red Blood Count 3.86 M/mcL (4.19-5.50); Red Cell Distribution Width 12.1 % (11.5-14.5); White Blood Count 10.3 K/mcL (4.3-11.1)
[2020-03-27 03:11] LABS: Heparin anti-factor XA UFH < 0.04 IU/mL (0.30-0.70)
[2020-03-27 03:12] LABS: INR 1.1; Prothrombin Time 12.2 Seconds (9.4-12.1)
[2020-03-27 03:22] LABS: BUN/Creatinine Ratio 19 (6-26); Blood Urea Nitrogen 23 mg/dL (6-20); Calcium 8.6 mg/dL (8.6-10.3); Carbon Dioxide 24 mEq/L (23-29); Chloride 107 mEq/L (98-107); Glucose 159 mg/dL (70-105); Osmolality,Calculated 291 (280-300); Phosphorous 3.3 mg/dL (2.7-4.5); Potassium 3.8 mEq/L (3.5-5.1); Sodium 137 mEq/L (136-145); eGFR For African Americans > 60 (> 60); eGFR For Non-African Americans > 60 (> 60)
[2020-03-27] MEDS: Insulin LISPRO 300 UNITS/3 ML VIAL SQ SCH ×3 (07:40→18:27)
[2020-03-27] MEDS ORDERED: Isosorbide MONOnitrate (24 HR) 30 MG TAB.ER.24H PO SCH (09:00)
[2020-03-27] MEDS ORDERED: lisinopriL 20 MG TABLET PO SCH (09:00)
[2020-03-27] MEDS ORDERED: amLODIPine 5 MG TABLET PO SCH (09:00)
[2020-03-27] MEDS ORDERED: Metoprolol XL (24 HR) Succ 50 MG TAB.ER.24H PO SCH (09:00)
[2020-03-27] MEDS ORDERED: Aspirin Enteric Coated 81 MG Tablet PO SCH (09:00)
[2020-03-27] MEDS: 0.9 % Sodium Chloride 1,000 ML IVC SCH (09:14)
[2020-03-27] MEDS: Ranolazine 500 MG TAB.ER.12H PO SCH ×2 (09:20→19:50)
[2020-03-27] MEDS ORDERED: *HR* FentaNYL (PF) 100 MCG/2 ML VIAL ONE (15:36)
[2020-03-27] MEDS ORDERED: Heparin 1,000 UNITS/500 mL 500 ML ONE ×2 (15:37→19:40)
[2020-03-27] MEDS ORDERED: *HR* Heparin 10,000 UNIT/10 ML VIAL ONE (15:37)
[2020-03-27] MEDS ORDERED: *HR* Midazolam HCl 2 MG/2 ML VIAL ONE (15:37)
[2020-03-27] MEDS ORDERED: 0.9 % Sodium Chloride 2,000 ML ONE (15:38)
[2020-03-27] MEDS ORDERED: CeFAZolin 2 GM/120 ML BAG IVPB ONE (19:00)
[2020-03-27] MEDS ORDERED: Insulin DETEMIR 100 UNIT/ML X5UNITS SQ SCH (21:00)
[2020-03-27] MEDS ORDERED: Insulin LISPRO 300 UNITS/3 ML VIAL SQ SCH (21:00)
[2020-03-28] MEDS ORDERED: *HR* Succinylcholine 200 MG/10 ML VIAL IVP ONE (00:18)
[2020-03-28] MEDS ORDERED: Ondansetron 4 MG/2 ML VIAL ONE (00:18)
[2020-03-28] MEDS ORDERED: Dexamethasone 4 MG/ML VIAL ONE (00:18)
[2020-03-28] MEDS ORDERED: *HR* Rocuronium Bromide 50 MG/5 ML VIAL ONE ×2 (00:18→05:36)
[2020-03-28] MEDS ORDERED: Lidocaine -MPF 2% 2 ML VIAL ONE ×2 (00:18→07:40)
[2020-03-28] MEDS ORDERED: Heparin 1,000 UNITS/500 mL 1,000 ML ONE (00:30)
[2020-03-28] MEDS ORDERED: *HR* Propofol 200 MG/20 ML VIAL IVP ONE ×2 (00:34→00:36)
[2020-03-28] MEDS ORDERED: *HR* HYDROmorphone PF 0.5 MG/0.5 ML SYRINGE IVP PRN (00:44)
[2020-03-28] MEDS ORDERED: *HR* OxyCODONE Immed Rel 5 MG TABLET PO PRN (00:44)
[2020-03-28] MEDS ORDERED: *HR* FentaNYL (PF) 100 MCG/2 ML VIAL ONE ×3 (01:16→07:25)
[2020-03-28] MEDS ORDERED: *HR* Phenylephrine 10 MG/ML VIAL ONE ×3 (01:53→05:46)
[2020-03-28] MEDS ORDERED: *HR* PHENYLEPHRINE 1,000 MCG/10 ML SYRINGE IVP ONE (02:04)
[2020-03-28] MEDS ORDERED: *HR* Heparin 5,000 UNIT/ML VIAL ONE (04:05)
[2020-03-28] MEDS ORDERED: Ondansetron 4 MG/2 ML VIAL IVP PRN ×2 (08:16→08:46)
[2020-03-28] MEDS ORDERED: Dextrose Gel 15 GM/37.5 ML TUBE PO PRN ×2 (08:46)
[2020-03-28] MEDS ORDERED: Naloxone 0.4 MG/ML INJ IVP PRN ×2 (08:46)
[2020-03-28] MEDS ORDERED: *HR* Dextrose 50 % in Water (Vial) 50 ML VIAL IVP PRN (08:46)
[2020-03-28] MEDS ORDERED: D5% in Water 1,000 ML IVC PRN (08:46)
[2020-03-28] MEDS ORDERED: lisinopriL 20 MG TABLET PO SCH (09:00)
[2020-03-28] MEDS: *HR* OxyCODONE Immed Rel 5 MG TABLET PO PRN (09:08)
[2020-03-28] MEDS: Metoprolol XL (24 HR) Succ 50 MG TAB.ER.24H PO SCH (09:24)
[2020-03-28] MEDS: amLODIPine 5 MG TABLET PO SCH (09:24)
[2020-03-28] MEDS: Aspirin Enteric Coated 81 MG Tablet PO SCH (09:25)
[2020-03-28] MEDS: Isosorbide MONOnitrate (24 HR) 30 MG TAB.ER.24H PO SCH (09:25)
[2020-03-28] MEDS: Ranolazine 500 MG TAB.ER.12H PO SCH ×2 (09:25→19:52)
[2020-03-28] MEDS: CeFAZolin 2 GM/120 ML BAG IVPB SCH ×3 (10:05→23:16)
[2020-03-28 10:28] LABS: Basophils % 0.2 %; Hematocrit 31.9 % (37.5-50.1); Immature Granulocytes % 0.7 % (0-4); Lymphocytes # 0.9 K/mcL (0.6-4.6); Lymphocytes % 5.6 %; Mean Corpuscular HGB Conc 30.1 g/dL (31.6-35.5); Mean Corpuscular Hemoglobin 29.6 pg (28.0-33.3); Mean Corpuscular Volume 98.5 fL (83.0-100.0); Mean Platelet Volume 12.6 fL (9.4-12.4); Monocytes # 0.6 K/mcL (0.0-1.3); Monocytes % 3.5 %; Neutrophils # 15.1 K/mcL (1.6-8.9); Platelet Count 195 K/mcL (140-400); Red Blood Count 3.24 M/mcL (4.19-5.50)
[2020-03-28 10:43] LABS: Hemoglobin 9.6 g/dL (12.9-16.9); White Blood Count 16.8 K/mcL (4.3-11.1)
[2020-03-28 10:46] LABS: BUN/Creatinine Ratio 20 (6-26); Blood Urea Nitrogen 22 mg/dL (6-20); Calcium 8.1 mg/dL (8.6-10.3); Carbon Dioxide 18 mEq/L (23-29); Chloride 109 mEq/L (98-107); Glucose 194 mg/dL (70-105); Osmolality,Calculated 297 (280-300); Potassium 4.5 mEq/L (3.5-5.1); Sodium 139 mEq/L (136-145); eGFR For African Americans > 60 (> 60); eGFR For Non-African Americans > 60 (> 60)
[2020-03-28] MEDS: Insulin LISPRO 300 UNITS/3 ML VIAL SQ SCH ×3 (11:59→20:01)
[2020-03-28] MEDS: 0.9 % Sodium Chloride 1,000 ML IVC SCH ×2 (12:27→19:51)
[2020-03-28] MEDS ORDERED: 0.9 % Sodium Chloride 500 ML IV ONE (12:58)
[2020-03-28] MEDS: Acetaminophen 325 MG TABLET PO PRN (17:00)
[2020-03-28] MEDS ORDERED: Melatonin 3 MG TABLET PO PRN (20:28)
[2020-03-28] MEDS ORDERED: Insulin DETEMIR 100 UNIT/ML X5UNITS SQ SCH (21:00)
[2020-03-28] MEDS ORDERED: Ketorolac 15 MG/ML VIAL IM ONE (22:17)
[2020-03-29 02:57] LABS: Basophils # 0.1 K/mcL (0.0-0.2); Basophils % 0.4 %; Eosinophils % 0.1 %; Hemoglobin 7.6 g/dL (12.9-16.9); Immature Granulocytes % 0.3 % (0-4); Lymphocytes # 2.4 K/mcL (0.6-4.6); Lymphocytes % 17.8 %; Mean Corpuscular HGB Conc 31.7 g/dL (31.6-35.5); Mean Corpuscular Hemoglobin 30.6 pg (28.0-33.3); Mean Corpuscular Volume 96.8 fL (83.0-100.0); Mean Platelet Volume 12.6 fL (9.4-12.4); Monocytes # 1.6 K/mcL (0.0-1.3); Monocytes % 11.8 %; Neutrophils # 9.3 K/mcL (1.6-8.9); Platelet Count 166 K/mcL (140-400); Red Blood Count 2.48 M/mcL (4.19-5.50); Red Cell Distribution Width 12.3 % (11.5-14.5); Segmented Neutrophils % 69.6 %; White Blood Count 13.4 K/mcL (4.3-11.1)
[2020-03-29 03:13] LABS: BUN/Creatinine Ratio 21 (6-26); Blood Urea Nitrogen 30 mg/dL (6-20); Calcium 7.6 mg/dL (8.6-10.3); Carbon Dioxide 23 mEq/L (23-29); Chloride 107 mEq/L (98-107); Glucose 350 mg/dL (70-105); Osmolality,Calculated 302 (280-300); Potassium 3.8 mEq/L (3.5-5.1); Sodium 136 mEq/L (136-145); eGFR For African Americans > 60 (> 60); eGFR For Non-African Americans 52 (> 60)
[2020-03-29] MEDS ORDERED: 0.9 % Sodium Chloride 500 ML IVC ONE (04:52)
[2020-03-29 08:11] LABS: Hematocrit 25.9 % (37.5-50.1); Hemoglobin 8.2 g/dL (12.9-16.9)
[2020-03-29] MEDS: Ranolazine 500 MG TAB.ER.12H PO SCH ×2 (08:18→20:05)
[2020-03-29] MEDS: Aspirin Enteric Coated 81 MG Tablet PO SCH (08:18)
[2020-03-29] MEDS: Insulin LISPRO 300 UNITS/3 ML VIAL SQ SCH ×4 (08:19→20:04)
[2020-03-29] MEDS: 0.9 % Sodium Chloride 1,000 ML IVC SCH ×2 (08:32→20:00)
[2020-03-29] MEDS ORDERED: 0.9 % Sodium Chloride 1,000 ML IVC SCH (08:45)
[2020-03-29] MEDS ORDERED: 0.9 % Sodium Chloride 250 ML ONE (10:08)
[2020-03-29] MEDS: Isosorbide MONOnitrate (24 HR) 30 MG TAB.ER.24H PO SCH (10:24)
[2020-03-29] MEDS: amLODIPine 5 MG TABLET PO SCH (10:25)
[2020-03-29] MEDS: Metoprolol XL (24 HR) Succ 50 MG TAB.ER.24H PO SCH (10:25)
[2020-03-29] MEDS: Acetaminophen 325 MG TABLET PO PRN ×2 (10:39→17:28)
[2020-03-29] MEDS: Insulin DETEMIR 100 UNIT/ML X5UNITS SQ SCH ×2 (12:23→20:05)
[2020-03-29] MEDS: *HR* OxyCODONE Immed Rel 5 MG TABLET PO PRN ×2 (12:38→20:04)
[2020-03-29] MEDS: *HR* HYDROcodone/Acet 5/325 mg TABLET PO PRN (15:03)
[2020-03-29 16:37] LABS: Hematocrit 29.7 % (37.5-50.1); Hemoglobin 9.3 g/dL (12.9-16.9)
[2020-03-29] MEDS ORDERED: *HR* HYDROcodone/Acet 5/325 mg TABLET PO ONE (18:17)
[2020-03-30 04:57] LABS: Basophils % 0.3 %; Eosinophils % 0.3 %; Hematocrit 29.4 % (37.5-50.1); Hemoglobin 9.4 g/dL (12.9-16.9); Immature Granulocytes % 0.5 % (0-4); Lymphocytes # 1.8 K/mcL (0.6-4.6); Lymphocytes % 16.5 %; Mean Corpuscular Hemoglobin 30.8 pg (28.0-33.3); Mean Corpuscular Volume 96.4 fL (83.0-100.0); Mean Platelet Volume 12.4 fL (9.4-12.4); Monocytes # 1.2 K/mcL (0.0-1.3); Monocytes % 10.8 %; Neutrophils # 7.8 K/mcL (1.6-8.9); Platelet Count 162 K/mcL (140-400); Red Blood Count 3.05 M/mcL (4.19-5.50); Red Cell Distribution Width 12.6 % (11.5-14.5); Segmented Neutrophils % 71.6 %; White Blood Count 10.9 K/mcL (4.3-11.1)
[2020-03-30 05:17] LABS: BUN/Creatinine Ratio 13 (6-26); Blood Urea Nitrogen 12 mg/dL (6-20); Calcium 8.3 mg/dL (8.6-10.3); Carbon Dioxide 26 mEq/L (23-29); Chloride 107 mEq/L (98-107); Glucose 111 mg/dL (70-105); Osmolality,Calculated 288 (280-300); Potassium 3.3 mEq/L (3.5-5.1); Sodium 139 mEq/L (136-145); eGFR For African Americans > 60 (> 60); eGFR For Non-African Americans > 60 (> 60)
[2020-03-30] MEDS: *HR* HYDROcodone/Acet 5/325 mg TABLET PO PRN ×2 (05:34→12:01)
[2020-03-30] MEDS: Insulin LISPRO 300 UNITS/3 ML VIAL SQ SCH ×4 (08:12→19:30)
[2020-03-30] MEDS: *HR* OxyCODONE Immed Rel 5 MG TABLET PO PRN (08:13)
[2020-03-30] MEDS: amLODIPine 5 MG TABLET PO SCH (09:58)
[2020-03-30] MEDS: Insulin DETEMIR 100 UNIT/ML X5UNITS SQ SCH (09:58)
[2020-03-30] MEDS: Aspirin Enteric Coated 81 MG Tablet PO SCH (10:00)
[2020-03-30] MEDS: Metoprolol XL (24 HR) Succ 50 MG TAB.ER.24H PO SCH (10:02)
[2020-03-30] MEDS: Ranolazine 500 MG TAB.ER.12H PO SCH ×2 (10:02→19:32)
[2020-03-30] MEDS: 0.9 % Sodium Chloride 1,000 ML IVC SCH (10:04)
[2020-03-30] MEDS: Isosorbide MONOnitrate (24 HR) 30 MG TAB.ER.24H PO SCH (12:01)
[2020-03-30] MEDS: Acetaminophen 325 MG TABLET PO PRN (18:07)
[2020-03-30] MEDS ORDERED: 0.9 % Sodium Chloride 500 ML IVC ONE (18:18)
[2020-03-30] MEDS ORDERED: 0.9 % Sodium Chloride 500 ML ONE (18:20)
[2020-03-30] MEDS ORDERED: Insulin DETEMIR 100 UNIT/ML X5UNITS SQ SCH (21:00)
[2020-03-31] MEDS: 0.9 % Sodium Chloride 1,000 ML IVC SCH (00:56)
[2020-03-31] MEDS: Acetaminophen 325 MG TABLET PO PRN (01:03)
[2020-03-31 06:54] LABS: Basophils % 0.3 %; Eosinophils # 0.1 K/mcL (0.0-0.6); Eosinophils % 0.6 %; Hematocrit 25.6 % (37.5-50.1); Hemoglobin 8.1 g/dL (12.9-16.9); Immature Granulocytes % 0.4 % (0-4); Lymphocytes # 2.4 K/mcL (0.6-4.6); Lymphocytes % 22.5 %; Mean Corpuscular HGB Conc 31.6 g/dL (31.6-35.5); Mean Corpuscular Hemoglobin 30.9 pg (28.0-33.3); Mean Corpuscular Volume 97.7 fL (83.0-100.0); Mean Platelet Volume 12.1 fL (9.4-12.4); Monocytes # 1.2 K/mcL (0.0-1.3); Monocytes % 10.7 %; Neutrophils # 7.1 K/mcL (1.6-8.9); Platelet Count 165 K/mcL (140-400); Red Blood Count 2.62 M/mcL (4.19-5.50); Red Cell Distribution Width 12.6 % (11.5-14.5); Segmented Neutrophils % 65.5 %; White Blood Count 10.8 K/mcL (4.3-11.1)
[2020-03-31 07:07] LABS: BUN/Creatinine Ratio 12 (6-26); Blood Urea Nitrogen 10 mg/dL (6-20); Calcium 7.9 mg/dL (8.6-10.3); Carbon Dioxide 25 mEq/L (23-29); Chloride 107 mEq/L (98-107); Glucose 106 mg/dL (70-105); Osmolality,Calculated 285 (280-300); Potassium 3.6 mEq/L (3.5-5.1); Sodium 138 mEq/L (136-145); eGFR For African Americans > 60 (> 60); eGFR For Non-African Americans > 60 (> 60)
[2020-03-31] MEDS: Insulin LISPRO 300 UNITS/3 ML VIAL SQ SCH ×2 (08:48→14:01)
[2020-03-31] MEDS: Metoprolol XL (24 HR) Succ 50 MG TAB.ER.24H PO SCH (09:01)
[2020-03-31] MEDS: Aspirin Enteric Coated 81 MG Tablet PO SCH (09:01)
[2020-03-31] MEDS: amLODIPine 5 MG TABLET PO SCH (09:01)
[2020-03-31] MEDS: Isosorbide MONOnitrate (24 HR) 30 MG TAB.ER.24H PO SCH (09:01)
[2020-03-31] MEDS: Ranolazine 500 MG TAB.ER.12H PO SCH (09:01)
[2020-03-31 10:48] VITALS: BP 98/61
[2020-03-31] MEDS ORDERED: cilostazoL 100 MG TABLET PO SCH (21:00)
== END 2020-03-31 14:44 | disposition home or self-care (01) | DRG 271 ==
LOC: 2NNU 15:20 → EMEROOARM 15:20 → SUATTDRO 21:10 → 2NNU 21:25
PROVIDERS: ADMIT Student in an Organized Health Care Education/Training Program; ATTEND Family Medicine

== ENCOUNTER 2021-03-12 09:54 | Inpatient (IN) ==
[2021-03-12] MEDS ORDERED: Vancomycin 1,500 MG/265 ML IV.SOLN IVPB ONE (11:00)
[2021-03-12 12:07] LABS: Basophils # 0.1 K/mcL (0.0-0.2); Basophils % 0.6 %; Eosinophils # 0.2 K/mcL (0.0-0.6); Eosinophils % 1.2 %; Hematocrit 38.7 % (37.5-50.1); Hemoglobin 11.7 g/dL (12.9-16.9); Immature Granulocytes % 0.5 % (0-4); Lymphocytes % 12.4 %; Mean Corpuscular HGB Conc 30.2 g/dL (31.6-35.5); Mean Corpuscular Hemoglobin 28.7 pg (28.0-33.3); Mean Corpuscular Volume 95.1 fL (83.0-100.0); Mean Platelet Volume 11.8 fL (9.4-12.4); Monocytes # 1.6 K/mcL (0.0-1.3); Monocytes % 9.9 %; Neutrophils # 12.3 K/mcL (1.6-8.9); Platelet Count 367 K/mcL (140-400); Red Blood Count 4.07 M/mcL (4.19-5.50); Red Cell Distribution Width 13.1 % (11.5-14.5); Segmented Neutrophils % 75.4 %; White Blood Count 16.3 K/mcL (4.3-11.1)
[2021-03-12 12:27] LABS: BUN/Creatinine Ratio 16 (6-26); Blood Urea Nitrogen 15 mg/dL (6-20); Calcium 9.7 mg/dL (8.6-10.3); Carbon Dioxide 26 mEq/L (23-29); Chloride 104 mEq/L (98-107); Glucose 143 mg/dL (70-105); Osmolality,Calculated 291 (280-300); Sodium 139 mEq/L (136-145); eGFR For African Americans > 60 (> 60); eGFR For Non-African Americans > 60 (> 60)
[2021-03-12] MEDS ORDERED: Ondansetron 4 MG/2 ML VIAL IVP PRN (14:15)
[2021-03-12] MEDS ORDERED: *HR* HYDROcodone/Acet 5/325 mg TABLET PO PRN ×2 (14:15)
[2021-03-12] MEDS ORDERED: Acetaminophen 325 MG TABLET PO PRN (14:15)
[2021-03-12] MEDS ORDERED: Naloxone 0.4 MG/ML INJ IVP PRN (14:15)
[2021-03-12] MEDS ORDERED: Melatonin 3 MG TABLET PO PRN (14:15)
[2021-03-12] MEDS ORDERED: *HR* OxyCODONE Immed Rel 5 MG TABLET PO PRN (14:15)
[2021-03-12] MEDS ORDERED: Dextrose Gel 15 GM/37.5 ML TUBE PO PRN ×2 (14:45)
[2021-03-12] MEDS ORDERED: *HR* Dextrose 50 % in Water (Syg) 50 ML SYRINGE IVP PRN (14:45)
[2021-03-12] MEDS ORDERED: D5% in Water 1,000 ML IVC PRN (14:45)
[2021-03-12 14:50] LABS: INR 1.8; Prothrombin Time 20.1 Seconds (9.4-12.1)
[2021-03-12 14:52] LABS: Activated Partial Thrombo Time 46.6 Seconds (26.0-36.0)
[2021-03-12] MEDS ORDERED: Heparin 25,000UNIT/250ML 1/2NS 25,000 UNIT/250 ML IV.SOLN IVC SCH (16:00)
[2021-03-12] MEDS ORDERED: *HR* Heparin 5,000 UNIT/ML VIAL IVP PRN ×2 (16:00)
[2021-03-12] MEDS ORDERED: *HR* Heparin 5,000 UNIT/ML VIAL IVP ONE (16:00)
[2021-03-12 16:05] LABS: Estimated Average Glucose 148 mg/dl; Hemoglobin A1C 6.8 %
[2021-03-12] MEDS ORDERED: Isovue-370 500 ML BOTTLE IVP ONE (17:27)
[2021-03-12 18:47] LABS: Hematocrit 36.2 % (37.5-50.1); Mean Corpuscular HGB Conc 30.4 g/dL (31.6-35.5); Mean Corpuscular Hemoglobin 28.8 pg (28.0-33.3); Mean Corpuscular Volume 94.8 fL (83.0-100.0); Mean Platelet Volume 11.5 fL (9.4-12.4); Platelet Count 338 K/mcL (140-400); Red Blood Count 3.82 M/mcL (4.19-5.50)
[2021-03-12 18:56] LABS: Heparin anti-factor XA UFH 0.32 IU/mL (0.30-0.70); INR 1.4; Prothrombin Time 15.7 Seconds (9.4-12.1)
[2021-03-12] MEDS: Insulin LISPRO 300 UNITS/3 ML VIAL SUBQ SCH ×2 (20:32→21:50)
[2021-03-12] MEDS: Heparin 25,000UNIT/250ML 1/2NS 25,000 UNIT/250 ML IV.SOLN IVC SCH (20:37)
[2021-03-12] MEDS: Vancomycin 1,500 MG/265 ML IV.SOLN IVPB SCH (23:42)
[2021-03-13] MEDS: Piperacillin/Tazobactam 3.375 GM in 0.9 % Sodium Chloride Mini Bag 100 ML IVPB SCH ×3 (00:59→23:57)
[2021-03-13 03:28] LABS: Heparin anti-factor XA UFH 0.34 IU/mL (0.30-0.70)
[2021-03-13 03:31] LABS: Blood Urea Nitrogen 13 mg/dL (6-20); Calcium 8.6 mg/dL (8.6-10.3); Carbon Dioxide 24 mEq/L (23-29); Chloride 106 mEq/L (98-107); Glucose 118 mg/dL (70-105); Magnesium 1.6 mg/dL (1.6-2.6); Osmolality,Calculated 287 (280-300); Phosphorous 3.7 mg/dL (2.7-4.5); Potassium 3.6 mEq/L (3.5-5.1); Sodium 138 mEq/L (136-145)
[2021-03-13 04:14] LABS: BUN/Creatinine Ratio 14 (6-26); eGFR For African Americans > 60 (> 60); eGFR For Non-African Americans > 60 (> 60)
[2021-03-13 04:15] LABS: Basophils # 0.1 K/mcL (0.0-0.2); Basophils % 0.7 %; Eosinophils # 0.2 K/mcL (0.0-0.6); Eosinophils % 1.8 %; Hematocrit 33.1 % (37.5-50.1); Hemoglobin 10.2 g/dL (12.9-16.9); Immature Granulocytes % 0.2 % (0-4); Lymphocytes # 2.3 K/mcL (0.6-4.6); Lymphocytes % 22.9 %; Mean Corpuscular HGB Conc 30.8 g/dL (31.6-35.5); Mean Corpuscular Hemoglobin 29.1 pg (28.0-33.3); Mean Corpuscular Volume 94.6 fL (83.0-100.0); Monocytes # 1.1 K/mcL (0.0-1.3); Monocytes % 11.1 %; Neutrophils # 6.5 K/mcL (1.6-8.9); Platelet Count 301 K/mcL (140-400); Red Cell Distribution Width 12.9 % (11.5-14.5); Segmented Neutrophils % 63.3 %; White Blood Count 10.2 K/mcL (4.3-11.1)
[2021-03-13 04:41] LABS: Activated Partial Thrombo Time 45.7 Seconds (26.0-36.0)
[2021-03-13] MEDS ORDERED: ceFAZolin 1,000 MG, Sodium Chloride IRRigation 1,000 ML IR ONE ×2 (06:00→22:22)
[2021-03-13] MEDS: Insulin LISPRO 300 UNITS/3 ML VIAL SUBQ SCH ×2 (07:52→12:23)
[2021-03-13] MEDS: Vancomycin 1,500 MG/265 ML IV.SOLN IVPB SCH (11:12)
[2021-03-13] MEDS: Heparin 25,000UNIT/250ML 1/2NS 25,000 UNIT/250 ML IV.SOLN IVC SCH ×2 (12:45→23:58)
[2021-03-13] MEDS ORDERED: Heparin 1,000 UNITS/500 mL 500 ML ONE ×2 (13:08→13:20)
[2021-03-13] MEDS ORDERED: *HR* Midazolam HCl 2 MG/2 ML VIAL ONE (13:47)
[2021-03-13] MEDS ORDERED: *HR* HYDROmorphone PF 0.5 MG/0.5 ML SYRINGE IVP PRN (13:47)
[2021-03-13] MEDS ORDERED: Lidocaine -MPF 2% 5 ML VIAL ONE ×2 (13:48→13:52)
[2021-03-13] MEDS ORDERED: *HR* Propofol 200 MG/20 ML VIAL IVP ONE (13:48)
[2021-03-13] MEDS ORDERED: Ondansetron 4 MG/2 ML VIAL ONE (13:48)
[2021-03-13] MEDS ORDERED: *HR* Rocuronium Bromide 50 MG/5 ML VIAL ONE ×3 (13:48→17:37)
[2021-03-13] MEDS ORDERED: *HR* FentaNYL (PF) 100 MCG/2 ML VIAL ONE (13:48)
[2021-03-13] MEDS ORDERED: Famotidine 20 MG/2 ML VIAL ONE (13:51)
[2021-03-13] MEDS ORDERED: Acetaminophen IV 1,000 MG/100 ML BAG IVPB ONE (13:51)
[2021-03-13] MEDS ORDERED: *HR* Phenylephrine 10 MG/ML VIAL ONE ×2 (15:23→20:04)
[2021-03-13] MEDS ORDERED: *HR* HYDROMORPHONE 2 MG/ML VIAL ONE (15:35)
[2021-03-13 15:43] LABS: C-Reactive Protein 49 mg/L (Less than 10)
[2021-03-13] MEDS ORDERED: *HR* Heparin 5,000 UNIT/ML VIAL ONE ×2 (16:33→18:44)
[2021-03-13] MEDS ORDERED: Albumin Human 5% 12.5 GM/250 ML IV.SOLN ONE (20:07)
[2021-03-13] MEDS ORDERED: Ranolazine 500 MG TAB.ER.12H PO SCH (21:00)
[2021-03-13] MEDS ORDERED: Sugammadex Sodium 200 MG/2 ML VIAL IV ONE (21:02)
[2021-03-13] MEDS ORDERED: *HR* Labetalol 20 MG/4 ML SYRINGE IVP ONE (21:17)
[2021-03-13] MEDS ORDERED: Dextrose Gel 15 GM/37.5 ML TUBE PO PRN ×2 (22:22)
[2021-03-13] MEDS ORDERED: *HR* Heparin 5,000 UNIT/ML VIAL IVP PRN ×2 (22:22)
[2021-03-13] MEDS ORDERED: D5% in Water 1,000 ML IVC PRN (22:22)
[2021-03-13] MEDS ORDERED: Ondansetron 4 MG/2 ML VIAL IVP PRN (22:22)
[2021-03-13] MEDS ORDERED: *HR* Dextrose 50 % in Water (Syg) 50 ML SYRINGE IVP PRN (22:22)
[2021-03-13] MEDS ORDERED: *HR* HYDROmorphone (PF) 1 MG/ML SYRINGE IVP PRN (22:22)
[2021-03-13] MEDS ORDERED: *HR* Labetalol 20 MG/4 ML SYRINGE IVP PRN (22:22)
[2021-03-13] MEDS ORDERED: Melatonin 3 MG TABLET PO PRN (22:22)
[2021-03-13] MEDS ORDERED: Naloxone 0.4 MG/ML INJ IVP PRN ×2 (22:22)
[2021-03-13] MEDS: *HR* OxyCODONE Immed Rel 5 MG TABLET PO PRN (22:53)
[2021-03-14] MEDS: Vancomycin 1,500 MG/265 ML IV.SOLN IVPB SCH ×3 (00:53→22:34)
[2021-03-14 04:57] LABS: Basophils % 0.4 %; Hematocrit 29.6 % (37.5-50.1); Immature Granulocytes % 0.4 % (0-4); Lymphocytes % 9.6 %; Mean Corpuscular HGB Conc 29.4 g/dL (31.6-35.5); Mean Corpuscular Hemoglobin 28.2 pg (28.0-33.3); Mean Corpuscular Volume 96.1 fL (83.0-100.0); Mean Platelet Volume 11.7 fL (9.4-12.4); Monocytes # 0.5 K/mcL (0.0-1.3); Monocytes % 5.1 %; Neutrophils # 8.7 K/mcL (1.6-8.9); Platelet Count 283 K/mcL (140-400); Red Blood Count 3.08 M/mcL (4.19-5.50); Red Cell Distribution Width 12.9 % (11.5-14.5); Segmented Neutrophils % 84.5 %; White Blood Count 10.3 K/mcL (4.3-11.1)
[2021-03-14 05:00] LABS: Hemoglobin 8.7 g/dL (12.9-16.9)
[2021-03-14 05:08] LABS: BUN/Creatinine Ratio 20 (6-26); Blood Urea Nitrogen 16 mg/dL (6-20); Calcium 8.2 mg/dL (8.6-10.3); Carbon Dioxide 17 mEq/L (23-29); Chloride 105 mEq/L (98-107); Glucose 161 mg/dL (70-105); Magnesium 1.6 mg/dL (1.6-2.6); Osmolality,Calculated 293 (280-300); Sodium 139 mEq/L (136-145); eGFR For African Americans > 60 (> 60); eGFR For Non-African Americans > 60 (> 60)
[2021-03-14] MEDS: Insulin LISPRO 300 UNITS/3 ML VIAL SUBQ SCH ×4 (08:22→21:01)
[2021-03-14] MEDS: *HR* OxyCODONE Immed Rel 5 MG TABLET PO PRN ×2 (08:22→16:37)
[2021-03-14] MEDS: Ranolazine 500 MG TAB.ER.12H PO SCH ×2 (08:54→21:00)
[2021-03-14] MEDS: Aspirin Enteric Coated 81 MG Tablet PO SCH (08:54)
[2021-03-14] MEDS ORDERED: Aspirin Enteric Coated 81 MG Tablet PO SCH (09:00)
[2021-03-14] MEDS: Piperacillin/Tazobactam 3.375 GM in 0.9 % Sodium Chloride Mini Bag 100 ML IVPB SCH ×2 (09:13→16:32)
[2021-03-14] MEDS: Acetaminophen 325 MG TABLET PO PRN (13:19)
[2021-03-14] MEDS: Heparin 25,000UNIT/250ML 1/2NS 25,000 UNIT/250 ML IV.SOLN IVC SCH (14:41)
[2021-03-14] MEDS: *HR* HYDROcodone/Acet 5/325 mg TABLET PO PRN (21:00)
[2021-03-15] MEDS: Piperacillin/Tazobactam 3.375 GM in 0.9 % Sodium Chloride Mini Bag 100 ML IVPB SCH ×5 (00:02→23:11)
[2021-03-15 01:28] LABS: Basophils # 0.1 K/mcL (0.0-0.2); Basophils % 0.5 %; Eosinophils # 0.1 K/mcL (0.0-0.6); Eosinophils % 0.5 %; Hematocrit 27.3 % (37.5-50.1); Hemoglobin 8.2 g/dL (12.9-16.9); Immature Granulocytes % 0.3 % (0-4); Lymphocytes # 2.3 K/mcL (0.6-4.6); Lymphocytes % 22.4 %; Mean Corpuscular Hemoglobin 28.5 pg (28.0-33.3); Mean Corpuscular Volume 94.8 fL (83.0-100.0); Mean Platelet Volume 11.6 fL (9.4-12.4); Monocytes # 1.2 K/mcL (0.0-1.3); Monocytes % 11.3 %; Neutrophils # 6.6 K/mcL (1.6-8.9); Platelet Count 276 K/mcL (140-400); Red Blood Count 2.88 M/mcL (4.19-5.50); Red Cell Distribution Width 13.2 % (11.5-14.5); White Blood Count 10.2 K/mcL (4.3-11.1)
[2021-03-15 01:38] LABS: BUN/Creatinine Ratio 17 (6-26); Blood Urea Nitrogen 17 mg/dL (6-20); Calcium 7.9 mg/dL (8.6-10.3); Carbon Dioxide 24 mEq/L (23-29); Chloride 107 mEq/L (98-107); Glucose 267 mg/dL (70-105); Magnesium 1.6 mg/dL (1.6-2.6); Osmolality,Calculated 295 (280-300); Potassium 3.4 mEq/L (3.5-5.1); Sodium 137 mEq/L (136-145); eGFR For African Americans > 60 (> 60); eGFR For Non-African Americans > 60 (> 60)
[2021-03-15] MEDS: Heparin 25,000UNIT/250ML 1/2NS 25,000 UNIT/250 ML IV.SOLN IVC SCH ×2 (05:15→20:12)
[2021-03-15] MEDS: Acetaminophen 325 MG TABLET PO PRN (05:29)
[2021-03-15] MEDS: *HR* OxyCODONE Immed Rel 5 MG TABLET PO PRN (05:29)
[2021-03-15] MEDS: Insulin LISPRO 300 UNITS/3 ML VIAL SUBQ SCH ×6 (07:34→20:12)
[2021-03-15] MEDS: Aspirin Enteric Coated 81 MG Tablet PO SCH (07:43)
[2021-03-15] MEDS: Ranolazine 500 MG TAB.ER.12H PO SCH ×2 (07:44→20:11)
[2021-03-15] MEDS ORDERED: Potassium Chloride Elixir 20 MEQ/15 ML UDC PO ONE (09:09)
[2021-03-15] MEDS: Vancomycin 1,500 MG/265 ML IV.SOLN IVPB SCH ×2 (12:03→23:13)
[2021-03-15] MEDS: *HR* HYDROcodone/Acet 5/325 mg TABLET PO PRN ×2 (12:46→20:35)
[2021-03-16 06:06] LABS: Basophils # 0.1 K/mcL (0.0-0.2); Basophils % 0.5 %; Eosinophils # 0.1 K/mcL (0.0-0.6); Eosinophils % 1.2 %; Hematocrit 29.8 % (37.5-50.1); Hemoglobin 9.1 g/dL (12.9-16.9); Immature Granulocytes % 0.4 % (0-4); Lymphocytes # 1.9 K/mcL (0.6-4.6); Lymphocytes % 19.1 %; Mean Corpuscular HGB Conc 30.5 g/dL (31.6-35.5); Mean Corpuscular Hemoglobin 28.6 pg (28.0-33.3); Mean Corpuscular Volume 93.7 fL (83.0-100.0); Mean Platelet Volume 11.3 fL (9.4-12.4); Monocytes # 1.2 K/mcL (0.0-1.3); Monocytes % 11.6 %; Neutrophils # 6.8 K/mcL (1.6-8.9); Platelet Count 263 K/mcL (140-400); Red Blood Count 3.18 M/mcL (4.19-5.50); Red Cell Distribution Width 12.9 % (11.5-14.5); Segmented Neutrophils % 67.2 %; White Blood Count 10.1 K/mcL (4.3-11.1)
[2021-03-16 06:28] LABS: BUN/Creatinine Ratio 11 (6-26); Blood Urea Nitrogen 9 mg/dL (6-20); Calcium 8.3 mg/dL (8.6-10.3); Carbon Dioxide 24 mEq/L (23-29); Chloride 105 mEq/L (98-107); Glucose 113 mg/dL (70-105); Osmolality,Calculated 283 (280-300); Potassium 3.7 mEq/L (3.5-5.1); Sodium 137 mEq/L (136-145); eGFR For African Americans > 60 (> 60); eGFR For Non-African Americans > 60 (> 60)
[2021-03-16 08:56] LABS: Magnesium 1.8 mg/dL (1.6-2.6)
[2021-03-16] MEDS: Insulin LISPRO 300 UNITS/3 ML VIAL SUBQ SCH ×4 (09:52→20:34)
[2021-03-16] MEDS: Piperacillin/Tazobactam 3.375 GM in 0.9 % Sodium Chloride Mini Bag 100 ML IVPB SCH ×2 (10:19→16:17)
[2021-03-16] MEDS: Ranolazine 500 MG TAB.ER.12H PO SCH ×2 (10:20→20:31)
[2021-03-16] MEDS: Aspirin Enteric Coated 81 MG Tablet PO SCH (10:22)
[2021-03-16] MEDS: Heparin 25,000UNIT/250ML 1/2NS 25,000 UNIT/250 ML IV.SOLN IVC SCH ×2 (10:29→22:20)
[2021-03-16] MEDS: Vancomycin 1,500 MG/265 ML IV.SOLN IVPB SCH ×2 (12:39→22:23)
[2021-03-16] MEDS: *HR* HYDROcodone/Acet 5/325 mg TABLET PO PRN (20:30)
[2021-03-17] MEDS: Piperacillin/Tazobactam 3.375 GM in 0.9 % Sodium Chloride Mini Bag 100 ML IVPB SCH ×3 (01:08→17:10)
[2021-03-17 07:53] LABS: Basophils # 0.1 K/mcL (0.0-0.2); Basophils % 0.6 %; Eosinophils # 0.2 K/mcL (0.0-0.6); Eosinophils % 2.1 %; Hematocrit 30.5 % (37.5-50.1); Hemoglobin 9.3 g/dL (12.9-16.9); Immature Granulocytes % 0.5 % (0-4); Lymphocytes # 1.9 K/mcL (0.6-4.6); Lymphocytes % 17.9 %; Mean Corpuscular HGB Conc 30.5 g/dL (31.6-35.5); Mean Corpuscular Hemoglobin 28.4 pg (28.0-33.3); Mean Corpuscular Volume 93.3 fL (83.0-100.0); Mean Platelet Volume 11.8 fL (9.4-12.4); Monocytes # 1.1 K/mcL (0.0-1.3); Monocytes % 10.1 %; Neutrophils # 7.4 K/mcL (1.6-8.9); Platelet Count 275 K/mcL (140-400); Red Blood Count 3.27 M/mcL (4.19-5.50); Red Cell Distribution Width 12.7 % (11.5-14.5); Segmented Neutrophils % 68.8 %; White Blood Count 10.8 K/mcL (4.3-11.1)
[2021-03-17 08:18] LABS: BUN/Creatinine Ratio 13 (6-26); Blood Urea Nitrogen 10 mg/dL (6-20); Calcium 8.5 mg/dL (8.6-10.3); Carbon Dioxide 23 mEq/L (23-29); Chloride 105 mEq/L (98-107); Glucose 123 mg/dL (70-105); Magnesium 1.8 mg/dL (1.6-2.6); Osmolality,Calculated 288 (280-300); Potassium 3.9 mEq/L (3.5-5.1); Sodium 139 mEq/L (136-145); eGFR For African Americans > 60 (> 60); eGFR For Non-African Americans > 60 (> 60)
[2021-03-17] MEDS: Insulin LISPRO 300 UNITS/3 ML VIAL SUBQ SCH ×3 (09:09→15:16)
[2021-03-17] MEDS: Aspirin Enteric Coated 81 MG Tablet PO SCH (09:12)
[2021-03-17] MEDS: Ranolazine 500 MG TAB.ER.12H PO SCH (09:12)
[2021-03-17] MEDS: Vancomycin 1,500 MG/265 ML IV.SOLN IVPB SCH (11:16)
[2021-03-17 11:57] VITALS: O2SAT 97
[2021-03-17] MEDS ORDERED: Lidocaine -MPF 2% 5 ML VIAL ONE (12:41)
[2021-03-17] MEDS ORDERED: *HR* FentaNYL (PF) 100 MCG/2 ML VIAL ONE (12:42)
[2021-03-17] MEDS ORDERED: Lidocaine 1% 20 ML MDV ONE (13:16)
[2021-03-17] MEDS: Heparin 25,000UNIT/250ML 1/2NS 25,000 UNIT/250 ML IV.SOLN IVC SCH (13:27)
[2021-03-17 14:46] VITALS: BP 138/83; PULSE 83; TEMP 98
[2021-03-17] MEDS ORDERED: Apixaban 5 MG TABLET PO ONE (17:45)
[2021-03-18] MEDS ORDERED: Vancomycin 1,500 MG/265 ML IV.SOLN IVPB SCH (01:00)
== END 2021-03-17 18:36 | disposition home or self-care (01) | DRG 252 ==
LOC: EMEROOARM 09:54 → 2NNU 16:33 → 2ANU 03-15 14:44
PROVIDERS: ADMIT Family Medicine; ATTEND Family Medicine

== ENCOUNTER 2021-05-12 07:14 | Inpatient (IN) ==
[2021-05-12] MEDS ORDERED: Piperacillin/Tazobactam 3.375 GM in 0.9 % Sodium Chloride Mini Bag 100 ML IVPB ONE (07:54)
[2021-05-12] MEDS ORDERED: Vancomycin 1,500 MG/265 ML IV.SOLN IVPB ONE (08:00)
[2021-05-12 08:48] LABS: Basophils # 0.1 K/mcL (0.0-0.2); Basophils % 0.5 %; Eosinophils # 0.2 K/mcL (0.0-0.6); Eosinophils % 1.3 %; Hematocrit 28.8 % (37.5-50.1); Hemoglobin 8.4 g/dL (12.9-16.9); Immature Granulocytes % 0.4 % (0-4); Lymphocytes # 2.3 K/mcL (0.6-4.6); Lymphocytes % 13.8 %; Mean Corpuscular HGB Conc 29.2 g/dL (31.6-35.5); Mean Corpuscular Hemoglobin 23.7 pg (28.0-33.3); Mean Corpuscular Volume 81.1 fL (83.0-100.0); Mean Platelet Volume 12.4 fL (9.4-12.4); Monocytes # 1.7 K/mcL (0.0-1.3); Monocytes % 10.2 %; Neutrophils # 12.3 K/mcL (1.6-8.9); Platelet Count 377 K/mcL (140-400); Red Blood Count 3.55 M/mcL (4.19-5.50); Red Cell Distribution Width 15.2 % (11.5-14.5); Segmented Neutrophils % 73.8 %; White Blood Count 16.7 K/mcL (4.3-11.1)
[2021-05-12] MEDS ORDERED: Gadolinium Contrast Agent (WT Based) IV PRN (08:48)
[2021-05-12] MEDS ORDERED: 0.9 % Sodium Chloride 1,000 ML IV ONE (09:30)
[2021-05-12] MEDS ORDERED: Naloxone 0.4 MG/ML INJ IVP PRN (09:52)
[2021-05-12 10:28] LABS: Alanine Aminotransferase 16 Units/L (7-52); Albumin 3.3 g/dL (3.5-5.7); Albumin/Globulin Ratio 0.9 (1.1-2.2); Alkaline Phosphatase 61 Units/L (34-104); Aspartate Amino Transferase 10 Units/L (13-39); BUN/Creatinine Ratio 15 (6-26); Bilirubin,Total 0.3 mg/dL (0.3-1.0); Blood Urea Nitrogen 13 mg/dL (6-20); C-Reactive Protein 75 mg/L (Less than 10); Calcium 8.8 mg/dL (8.6-10.3); Carbon Dioxide 27 mEq/L (23-29); Chloride 104 mEq/L (98-107); Globulin 3.7 g/dL (2.4-3.5); Glucose 149 mg/dL (70-105); Osmolality,Calculated 289 (280-300); Sodium 138 mEq/L (136-145); eGFR For African Americans > 60 (> 60); eGFR For Non-African Americans > 60 (> 60)
[2021-05-12] MEDS ORDERED: Nitroglycerin 0.4 MG TAB.SUBL SL PRN (10:31)
[2021-05-12] MEDS ORDERED: D5% in Water 1,000 ML IVC PRN (10:33)
[2021-05-12] MEDS ORDERED: *HR* Dextrose 50 % in Water (Syg) 50 ML SYRINGE IVP PRN (10:33)
[2021-05-12] MEDS ORDERED: Dextrose Gel 15 GM/37.5 ML TUBE PO PRN ×2 (10:33)
[2021-05-12] MEDS ORDERED: GADOBUTROL 30 MMOL/30 ML VIAL IVP ONE (12:20)
[2021-05-12] MEDS: Metoprolol XL (24 HR) Succ 50 MG TAB.ER.24H PO SCH (14:25)
[2021-05-12] MEDS: Insulin LISPRO 300 UNITS/3 ML VIAL SUBQ SCH ×3 (16:18→21:07)
[2021-05-12] MEDS: *HR* Heparin 5,000 UNIT/ML VIAL SQ SCH (18:00)
[2021-05-12] MEDS: Ranolazine 500 MG TAB.ER.12H PO SCH (21:06)
[2021-05-12] MEDS: cilostazoL 100 MG TABLET PO SCH (21:07)
[2021-05-13] MEDS: *HR* Heparin 5,000 UNIT/ML VIAL SQ SCH ×3 (00:25→09:47)
[2021-05-13] MEDS: Insulin LISPRO 300 UNITS/3 ML VIAL SUBQ SCH ×4 (07:45→21:12)
[2021-05-13] MEDS: cilostazoL 100 MG TABLET PO SCH ×2 (09:35→21:11)
[2021-05-13] MEDS: Metoprolol XL (24 HR) Succ 50 MG TAB.ER.24H PO SCH (09:35)
[2021-05-13] MEDS: Ranolazine 500 MG TAB.ER.12H PO SCH ×2 (09:35→21:11)
[2021-05-13] MEDS: Aspirin Enteric Coated 81 MG Tablet PO SCH (09:35)
[2021-05-13] MEDS ORDERED: Piperacillin/Tazobactam 3.375 GM in 0.9 % Sodium Chloride Mini Bag 100 ML IVPB SCH (11:00)
[2021-05-13] MEDS ORDERED: Ringers Solution, Lactated 1,000 ML IVC SCH (11:15)
[2021-05-13] MEDS ORDERED: Acetaminophen IV 1,000 MG/100 ML BAG IVPB ONE (11:22)
[2021-05-13] MEDS ORDERED: Bupivacaine/EPI 1:200k 0.25% 50 ML VIAL ONE (11:22)
[2021-05-13] MEDS ORDERED: Lidocaine/EPI 1:100k 1% 30 ML VIAL ONE (11:22)
[2021-05-13] MEDS ORDERED: Lidocaine 1% 20 ML MDV ONE (11:31)
[2021-05-13] MEDS ORDERED: Acetaminophen 325 MG TABLET PO PRN (14:58)
[2021-05-13] MEDS: Vancomycin 1,500 MG/265 ML IV.SOLN IVPB SCH (19:02)
[2021-05-13] MEDS: *HR* Metformin 500 MG TABLET PO SCH (19:02)
[2021-05-13] MEDS: Piperacillin/Tazobactam 3.375 GM in 0.9 % Sodium Chloride Mini Bag 100 ML IVPB SCH (19:03)
[2021-05-13] MEDS: Apixaban 5 MG TABLET PO SCH (21:10)
[2021-05-13] MEDS: GlipiZIDE 5 MG TABLET PO SCH (21:11)
[2021-05-14] MEDS: Piperacillin/Tazobactam 3.375 GM in 0.9 % Sodium Chloride Mini Bag 100 ML IVPB SCH ×3 (02:23→18:03)
[2021-05-14] MEDS: Vancomycin 1,500 MG/265 ML IV.SOLN IVPB SCH ×5 (02:26→17:43)
[2021-05-14] MEDS: *HR* HYDROcodone/Acet 10/325 mg TABLET PO PRN ×2 (05:08→16:15)
[2021-05-14] MEDS: Metoprolol XL (24 HR) Succ 50 MG TAB.ER.24H PO SCH (08:15)
[2021-05-14] MEDS: Ranolazine 500 MG TAB.ER.12H PO SCH ×2 (08:15→20:55)
[2021-05-14] MEDS: cilostazoL 100 MG TABLET PO SCH ×2 (08:15→20:55)
[2021-05-14] MEDS: Aspirin Enteric Coated 81 MG Tablet PO SCH (08:15)
[2021-05-14] MEDS: *HR* Metformin 500 MG TABLET PO SCH ×2 (08:15→16:15)
[2021-05-14] MEDS: Apixaban 5 MG TABLET PO SCH ×2 (08:15→20:55)
[2021-05-14] MEDS: Insulin LISPRO 300 UNITS/3 ML VIAL SUBQ SCH ×4 (08:18→20:56)
[2021-05-14] MEDS: (Empagliflozin [Jardiance] 25 MG Tablet) PO SCH (08:40)
[2021-05-14] MEDS: GlipiZIDE 5 MG TABLET PO SCH ×2 (08:42→20:55)
[2021-05-14 10:51] LABS: Hematocrit 31.1 % (37.5-50.1); Hemoglobin 9.1 g/dL (12.9-16.9); Mean Corpuscular HGB Conc 29.3 g/dL (31.6-35.5); Mean Corpuscular Hemoglobin 23.8 pg (28.0-33.3); Mean Corpuscular Volume 81.4 fL (83.0-100.0); Mean Platelet Volume 11.2 fL (9.4-12.4); Platelet Count 417 K/mcL (140-400); Red Blood Count 3.82 M/mcL (4.19-5.50); Red Cell Distribution Width 14.7 % (11.5-14.5)
[2021-05-14 10:57] LABS: BUN/Creatinine Ratio 20 (6-26); Blood Urea Nitrogen 19 mg/dL (6-20); Calcium 8.5 mg/dL (8.6-10.3); Carbon Dioxide 27 mEq/L (23-29); Chloride 106 mEq/L (98-107); Glucose 151 mg/dL (70-105); Osmolality,Calculated 295 (280-300); Potassium 3.5 mEq/L (3.5-5.1); Sodium 140 mEq/L (136-145); eGFR For African Americans > 60 (> 60); eGFR For Non-African Americans > 60 (> 60)
[2021-05-15] MEDS: Piperacillin/Tazobactam 3.375 GM in 0.9 % Sodium Chloride Mini Bag 100 ML IVPB SCH (02:58)
[2021-05-15 05:19] LABS: Basophils % 0.5 %; Eosinophils % 1.5 %; Hemoglobin 8.6 g/dL (12.9-16.9); Mean Corpuscular Volume 82.4 fL (83.0-100.0); Mean Platelet Volume 10.9 fL (9.4-12.4); Red Cell Distribution Width 14.8 % (11.5-14.5)
[2021-05-15 05:21] LABS: Basophils # 0.1 K/mcL (0.0-0.2); Eosinophils # 0.2 K/mcL (0.0-0.6); Hematocrit 29.5 % (37.5-50.1); Immature Granulocytes % 0.5 % (0-4); Lymphocytes # 2.4 K/mcL (0.6-4.6); Lymphocytes % 19.8 %; Mean Corpuscular HGB Conc 29.2 g/dL (31.6-35.5); Monocytes # 1.2 K/mcL (0.0-1.3); Neutrophils # 8.3 K/mcL (1.6-8.9); Platelet Count 371 K/mcL (140-400); Red Blood Count 3.58 M/mcL (4.19-5.50); Segmented Neutrophils % 67.7 %; White Blood Count 12.3 K/mcL (4.3-11.1)
[2021-05-15 05:33] LABS: BUN/Creatinine Ratio 17 (6-26); Blood Urea Nitrogen 16 mg/dL (6-20); Calcium 8.3 mg/dL (8.6-10.3); Carbon Dioxide 27 mEq/L (23-29); Chloride 107 mEq/L (98-107); Glucose 86 mg/dL (70-105); Osmolality,Calculated 292 (280-300); Potassium 3.6 mEq/L (3.5-5.1); Sodium 141 mEq/L (136-145); eGFR For African Americans > 60 (> 60); eGFR For Non-African Americans > 60 (> 60)
[2021-05-15 06:12] LABS: Platelet Estimate Normal (Normal)
[2021-05-15 06:13] LABS: Hypochromasia Present (Not Present); Poikilocytosis 1+ (Not Present)
[2021-05-15] MEDS: Vancomycin 1,500 MG/265 ML IV.SOLN IVPB SCH (06:16)
[2021-05-15 07:26] VITALS: BP 170/83; PULSE 83; TEMP 98.5; O2SAT 93
[2021-05-15] MEDS: Insulin LISPRO 300 UNITS/3 ML VIAL SUBQ SCH (10:15)
[2021-05-15] MEDS: GlipiZIDE 5 MG TABLET PO SCH (10:16)
[2021-05-15] MEDS: cilostazoL 100 MG TABLET PO SCH (10:16)
[2021-05-15] MEDS: Metoprolol XL (24 HR) Succ 50 MG TAB.ER.24H PO SCH (10:16)
[2021-05-15] MEDS: Ranolazine 500 MG TAB.ER.12H PO SCH (10:16)
[2021-05-15] MEDS: Aspirin Enteric Coated 81 MG Tablet PO SCH (10:16)
[2021-05-15] MEDS: Apixaban 5 MG TABLET PO SCH (10:17)
[2021-05-15] MEDS: *HR* Metformin 500 MG TABLET PO SCH (10:20)
[2021-05-15] MEDS: (Empagliflozin [Jardiance] 25 MG Tablet) PO SCH (10:22)
== END 2021-05-15 11:47 | disposition home or self-care (01) | DRG 853 ==
LOC: EMEROOARM 07:14 → 3ANU 10:20 → SUATTDRO 10:20 → 3ANU 11:21
PROVIDERS: ADMIT Internal Medicine; ATTEND Family Medicine

== ENCOUNTER 2021-07-20 10:41 | Inpatient (IN) ==
[2021-07-20] MEDS ORDERED: Lidocaine HCL 4 ML Topical Solution (Laryng-O-Jet Kit Sterile Pak) TP ONE (10:51)
[2021-07-20] MEDS ORDERED: *HR* Propofol 200 MG/20 ML VIAL IVP ONE (10:52)
[2021-07-20] MEDS ORDERED: *HR* Midazolam HCl 2 MG/2 ML VIAL ONE (10:53)
[2021-07-20] MEDS ORDERED: *HR* FentaNYL (PF) 100 MCG/2 ML VIAL ONE (10:53)
[2021-07-20] MEDS ORDERED: *HR* Rocuronium Bromide 50 MG/5 ML VIAL ONE ×2 (10:54→14:29)
[2021-07-20] MEDS ORDERED: *HR* Succinylcholine 200 MG/10 ML VIAL IVP ONE (10:54)
[2021-07-20] MEDS ORDERED: Ondansetron 4 MG/2 ML VIAL ONE (10:54)
[2021-07-20] MEDS ORDERED: Lidocaine -MPF 2% 5 ML VIAL ONE (10:54)
[2021-07-20] MEDS ORDERED: Sugammadex Sodium 200 MG/2 ML VIAL IV ONE (10:57)
[2021-07-20] MEDS ORDERED: *HR* Phenylephrine 10 MG/ML VIAL ONE (11:01)
[2021-07-20] MEDS ORDERED: *HR* Magnesium Sulfate 1 GM/2 ML VIAL ONE (11:10)
[2021-07-20] MEDS ORDERED: Ketamine HCL *QUVA* 50mg (1mL) SYRINGE ONE (11:10)
[2021-07-20] MEDS ORDERED: *HR* Vasopressin 20 UNIT/ML VIAL ONE (11:12)
[2021-07-20] MEDS ORDERED: Dexmedetomidine HCl 400 MCG/100 ML MLS IVC ONE (11:12)
[2021-07-20] MEDS ORDERED: CeFAZolin Syr 2,000MG/20 ML 2,000 MG/20 ML SYRINGE IVPB ONE (11:55)
[2021-07-20] MEDS ORDERED: Ringers Solution, Lactated 1,000 ML IVC SCH (12:00)
[2021-07-20] MEDS ORDERED: Acetaminophen IV 1,000 MG/100 ML BAG IVPB ONE ×2 (12:09→13:35)
[2021-07-20] MEDS ORDERED: Albumin Human 5% 12.5 GM/250 ML IV.SOLN ONE (12:11)
[2021-07-20] MEDS ORDERED: *HR* Labetalol 20 MG/4 ML SYRINGE IVP ONE (14:31)
[2021-07-20] MEDS ORDERED: *HR* HYDROMORPHONE 2 MG/ML VIAL ONE (14:35)
[2021-07-20] MEDS ORDERED: ceFAZolin 1,000 MG, Sodium Chloride IRRigation 1,000 ML IR ONE (16:35)
[2021-07-20] MEDS: *HR* HYDROmorphone (PF) 1 MG/ML SYRINGE IVP SCH ×4 (16:41→17:12)
[2021-07-20] MEDS ORDERED: Pregabalin 75 MG CAPSULE PO ONE (17:15)
[2021-07-20] MEDS ORDERED: Nitroglycerin 0.4 MG TAB.SUBL SL PRN (18:23)
[2021-07-20] MEDS ORDERED: Acetaminophen 325 MG TABLET PO PRN (18:23)
[2021-07-20] MEDS ORDERED: Ondansetron ODT 4 MG TAB.RAPDIS SL PRN (18:23)
[2021-07-20] MEDS: Ranolazine 500 MG TAB.ER.12H PO SCH (20:20)
[2021-07-20] MEDS: cilostazoL 100 MG TABLET PO SCH (20:21)
[2021-07-20] MEDS: *HR* Metformin 500 MG TABLET PO SCH (20:21)
[2021-07-20] MEDS: *HR* OxyCODONE/APAP 10/325 TABLET PO PRN (20:21)
[2021-07-20] MEDS: 0.9 % Sodium Chloride 1,000 ML IVC SCH (20:22)
[2021-07-20] MEDS: *HR* Labetalol 20 MG/4 ML SYRINGE IVP PRN (22:36)
[2021-07-20] MEDS: CeFAZolin 2 GM/120 ML BAG IVPB SCH (22:41)
[2021-07-21] MEDS: Ketorolac 30 MG/ML VIAL IVP PRN ×2 (01:23→18:17)
[2021-07-21] MEDS: *HR* HYDROmorphone (PF) 1 MG/ML SYRINGE IVP PRN ×2 (01:24→18:56)
[2021-07-21 01:52] LABS: BUN/Creatinine Ratio 21 (6-26); Basophils % 0.3 %; Blood Urea Nitrogen 16 mg/dL (6-20); Carbon Dioxide 26 mEq/L (23-29); Chloride 103 mEq/L (98-107); Eosinophils % 0.1 %; Glucose 172 mg/dL (70-105); Hemoglobin 8.8 g/dL (12.9-16.9); Immature Granulocytes % 0.3 % (0-4); Lymphocytes # 1.6 K/mcL (0.6-4.6); Lymphocytes % 10.8 %; Mean Corpuscular HGB Conc 29.3 g/dL (31.6-35.5); Mean Corpuscular Hemoglobin 22.4 pg (28.0-33.3); Mean Corpuscular Volume 76.5 fL (83.0-100.0); Mean Platelet Volume 11.9 fL (9.4-12.4); Monocytes # 0.7 K/mcL (0.0-1.3); Monocytes % 4.4 %; Neutrophils # 12.8 K/mcL (1.6-8.9); Osmolality,Calculated 289 (280-300); Platelet Count 473 K/mcL (140-400); Potassium 4.2 mEq/L (3.5-5.1); Red Blood Count 3.92 M/mcL (4.19-5.50); Segmented Neutrophils % 84.1 %; Sodium 137 mEq/L (136-145); White Blood Count 15.2 K/mcL (4.3-11.1); eGFR For African Americans > 60 (> 60); eGFR For Non-African Americans > 60 (> 60)
[2021-07-21] MEDS: CeFAZolin 2 GM/120 ML BAG IVPB SCH ×2 (04:07→13:49)
[2021-07-21] MEDS: *HR* HYDROcodone/Acet 5/325 mg TABLET PO PRN ×2 (04:09→16:12)
[2021-07-21] MEDS: *HR* Metformin 500 MG TABLET PO SCH ×2 (08:50→16:08)
[2021-07-21] MEDS: GlipiZIDE 5 MG TABLET PO SCH ×2 (08:50→16:08)
[2021-07-21] MEDS: cilostazoL 100 MG TABLET PO SCH ×2 (08:54→20:57)
[2021-07-21] MEDS: Aspirin Enteric Coated 81 MG Tablet PO SCH (08:54)
[2021-07-21] MEDS: Ranolazine 500 MG TAB.ER.12H PO SCH ×2 (08:55→20:56)
[2021-07-21] MEDS: 0.9 % Sodium Chloride 1,000 ML IVC SCH (13:50)
[2021-07-21] MEDS: *HR* OxyCODONE/APAP 10/325 TABLET PO PRN (22:07)
[2021-07-22] MEDS: *HR* HYDROcodone/Acet 5/325 mg TABLET PO PRN (03:28)
[2021-07-22] MEDS: Ketorolac 30 MG/ML VIAL IVP PRN ×2 (03:28→17:21)
[2021-07-22] MEDS: cilostazoL 100 MG TABLET PO SCH ×2 (07:51→19:27)
[2021-07-22] MEDS: GlipiZIDE 5 MG TABLET PO SCH ×2 (07:52→16:57)
[2021-07-22] MEDS: *HR* Metformin 500 MG TABLET PO SCH ×2 (07:52→16:57)
[2021-07-22] MEDS: Ranolazine 500 MG TAB.ER.12H PO SCH ×2 (07:52→19:27)
[2021-07-22] MEDS: Aspirin Enteric Coated 81 MG Tablet PO SCH (07:52)
[2021-07-22] MEDS: 0.9 % Sodium Chloride 1,000 ML IVC SCH (12:22)
[2021-07-22] MEDS: *HR* Labetalol 20 MG/4 ML SYRINGE IVP PRN (21:08)
[2021-07-23] MEDS: *HR* Labetalol 20 MG/4 ML SYRINGE IVP PRN (06:24)
[2021-07-23] MEDS: *HR* HYDROcodone/Acet 5/325 mg TABLET PO PRN ×2 (06:25→06:33)
[2021-07-23] MEDS: cilostazoL 100 MG TABLET PO SCH (08:03)
[2021-07-23] MEDS: *HR* Metformin 500 MG TABLET PO SCH (08:03)
[2021-07-23] MEDS: GlipiZIDE 5 MG TABLET PO SCH (08:04)
[2021-07-23] MEDS: Aspirin Enteric Coated 81 MG Tablet PO SCH (08:04)
[2021-07-23] MEDS: Ranolazine 500 MG TAB.ER.12H PO SCH (08:04)
[2021-07-23 10:50] VITALS: BP 166/93; PULSE 94; TEMP 97.8; O2SAT 96
== END 2021-07-23 13:14 | disposition home health service (06) | DRG 475 ==
LOC: SAMDAY 10:41 → 3ANU 18:14
PROVIDERS: ADMIT Surgery Vascular Surgery; ATTEND Surgery Vascular Surgery